=== PATIENT | female | born 1970 | race Caucasian/White ===

== ENCOUNTER 2017-10-21 22:18 | Emergency (ER) | payer SELFPAY ==
[2017-10-22] MEDS ORDERED: Sodium Chloride 0.9% 1000 ML 1,000 ML IV STA (00:21)
[2017-10-22] MEDS ORDERED: DUONEB 0.5-3 MG/3 ml Neb IH ONE ×2 (00:21→00:28)
[2017-10-22] MEDS ORDERED: Vistaril 50 MG/ML IM ONE (00:21)
[2017-10-22] MEDS ORDERED: SUBLIMAZE 100 MCG/2 ML IV ONE ×2 (00:22→02:48)
[2017-10-22] MEDS ORDERED: Sodium Chloride 0.9% 1000 ML 1,000 ML ONE (00:40)
[2017-10-22] MEDS ORDERED: VISTARIL 100MG/2ML IM ONE (00:40)
[2017-10-22] MEDS ORDERED: SUBLIMAZE 100 MCG/2 ML ONE ×2 (00:40→03:08)
[2017-10-22 00:45] LABS: Granulocyte Absolute (ANC) 4.66 (1.4-6.9); Hematocrit 41.5 % (35-47); Hemoglobin 13.7 gm/dl (12.0-16.0); Mean Cell Volume 90.6 fl (78-100); Mean Corpuscular Hemoglobin 29.9 pg (26-32); Mean Platelet Volume 9.5 fl (6-9.5); Platelet Count 287 K/mm3 (150-450); Red Blood Count 4.58 M/mm3 (4.1-5.4); Red Cell Distribution Width 15.3 % (11.5-14.0); White Blood Count 10.9 K/mm3 (4.0-10.5)
[2017-10-22 00:46] LABS: VBG BASE EXCESS 4.6 (-2.0-2.0); VBG HCO3- 29.2 meq/L (22-28); VBG O2 SATURATION 89.7 (95-100); VBG pH 7.45 (7.32-7.42)
[2017-10-22 00:47] LABS: VBG CARBOXYHEMOGLOBIN 9.7 % T HGB (0.0-6.9)
[2017-10-22 01:08] LABS: ALBUMIN 3.1 g/dL (3.4-5.0); ALKALINE PHOSPHATASE 75 U/L (46-116); ANION GAP 11.5 MEQ/L (5-15); BLOOD UREA NITROGEN 10 mg/dL (9-20); CHLORIDE 104 mEq/L (98-107); Calcium 8.5 mg/dL (8.5-10.1); Carbon Dioxide 27.6 mEq/L (21-32); EST GLOMERULAR FILTRATION RATE > 60 ML/MIN; Glucose 102 MG/DL (70-110); Potassium 3.9 mEq/L (3.5-5.1); SGOT/AST 21 U/L (15-37); SGPT/ALT 18 U/L (12-78); SODIUM 139 mEq/L (136-145); Total Protein 6.2 gm/dL (6.4-8.2)
[2017-10-22 01:22] LABS: Total Cells Counted 100
[2017-10-22 01:23] LABS: Eosinophil 3 % (0.00-3.0); Lymphocytes 50 % (24-44); Monocyte 5 % (0.0-12.0); Neutrophils 42 % (36.0-66.0); Platelet Estimate NORMAL (NORMAL)
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
[2017-10-22] MEDS ORDERED: DELTASONE 20 MG PO ONE (02:23)
[2017-10-22] MEDS ORDERED: Vibramycin 100 MG PO ONE (02:23)
[2017-10-22] MEDS ORDERED: DELTASONE 20 MG ONE (02:32)
[2017-10-22] MEDS ORDERED: Vibramycin 100 MG ONE (02:32)
[2017-10-22] MEDS ORDERED: PROVENTIL 2.5 MG/3 ML NEB IH ONE (02:54)
[2017-10-22] MEDS ORDERED: Xopenex 1.25 MG/0.5 ML UD NEBULE IH ONE ×2 (03:15→03:17)
[2017-10-22] MEDS ORDERED: Sodium Chloride 3 ML UD NEBULES IH ONE (03:17)
[2017-10-22 03:28] VITALS: O2SAT 98
[2017-10-22 03:55] VITALS: BP 102/50; PULSE 88
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
== END 2017-10-22 03:45 | disposition home or self-care (01) ==
LOC: ED 22:18
DX: T59.811A Toxic effect of smoke, accidental (unintentional), initial encounter (principal); J70.5 Respiratory conditions due to smoke inhalation; R07.89 Other chest pain; Z72.0 Tobacco use; R06.02 Shortness of breath; J45.909 Unspecified asthma, uncomplicated; J44.9 Chronic obstructive pulmonary disease, unspecified; Z86.73 Personal history of transient ischemic attack (TIA), and cerebral infarction without residual deficits; I25.2 Old myocardial infarction; N80.9 Endometriosis, unspecified
CPT/HCPCS: 36000; 36415; 71046; 80053; 82805; 84484; 85025; 93005; 93041; 94640; 96360; 96372; 96374; 96376; 99284; J3010; J3410; A9270-GY

== ENCOUNTER 2017-10-29 16:27 | Emergency (ER) | payer OTHER ==
[2017-10-29 16:49] VITALS: O2SAT 99
--- NOTE | 2017-10-29 17:15 | ERPHSYRPT ---
- History of Present Illness Time Seen by Provider: 10/29/17 17:09 Source: patient Exam Limitations: no limitations Patient Subjective Stated Complaint: pt co pain to left ankle, foot fell asleep today and when she went to stand her ankle twisted and she fell. co pain to top of foot and andkle Triage Nursing Assessment: pt alert, arrived per wc, resp. easy, skin w/d pink, no bruising to foot Physician History: The patient is a 47-year-old female complaining that she twisted her left foot last night when she got up after being in a chair. Her foot was asleep. It caused her to fall and twist her foot. Her foot is now swollen, bruised, and painful. She is not able to walk on it. She has never hurt that foot significantly in the past. Her past medical history is significant for asthma. Occurred: yesterday Reason for Fall: lost balance, fell from standing pos Injuries/Pain Location: lower extremity Loss of Consciousness: no loss of consciousness Quality: sharpness, throbbing Severity of Pain-Max: severe Severity of Pain-Current: severe Modifying Factors: Improves With: nothing Associated Symptoms (Fall): trouble walking Allergies/Adverse Reactions: diphenhydramine HCl [From Benadryl] Allergy (Intermediate, Verified 10/29/17 16: 50) Hives hydrocodone bitartrate [From Lortab] Allergy (Mild, Verified 10/29/17 16:50) Iodinated Contrast- Oral and IV Dye Allergy (Mild, Verified 10/29/17 16:50) Hives morphine Allergy (Mild, Verified 10/29/17 16:50) Poultry Allergy (Mild, Verified 10/29/17 16:50) Hives acetaminophen [From Darvocet-N 100] Allergy (Unknown, Verified 10/29/17 16:50) benzonatate [From Tessalon Perles] Allergy (Unknown, Verified 10/29/17 16:50) codeine [Codeine] Allergy (Unknown, Verified 10/29/17 16:50) ibuprofen Allergy (Unknown, Verified 10/29/17 16:50) promethazine HCl [From Phenergan] Allergy (Unknown, Verified 10/29/17 16:50) propoxyphene napsylate [From Darvocet-N 100] Allergy (Unknown, Verified 16:50) sumatriptan [From Imitrex] Allergy (Unknown, Verified 10/29/17 16:50) sumatriptan succinate [From Imitrex] Allergy (Unknown, Verified 10/29/17 16:50) influenza virus vaccine, specific [Influenza Virus Vacc,Specific] Allergy ( Verified 10/29/17 16:50) ketorolac tromethamine [From Toradol] Allergy (Verified 10/29/17 16:50) Hives milk Allergy (Verified 10/29/17 16:50) Penicillins Allergy (Verified 10/29/17 16:50) pneumococcal vaccine [Pneumococcal Vaccine] Allergy (Verified 10/29/17 16:50) Tetanus Vaccines and Toxoid [Tetanus Vaccines & Toxoid] Allergy (Verified 16:50) tramadol Allergy (Verified 10/29/17 16:50) EGGS Allergy (Mild, Uncoded 10/29/17 16:50) RASH Home Medications: Aspirin [Aspir-Low] 81 mg DAILY 10/29/17 [History] Hx Tetanus, Diphtheria Vaccination/Date Given: Yes Hx Influenza Vaccination/Date Given: No Hx Pneumococcal Vaccination/Date Given: No Immunizations Up to Date: Yes - Review of Systems Constitutional: No Fever, No Chills Eyes: No Symptoms Ears, Nose, & Throat: No Symptoms Respiratory: No Cough, No Dyspnea Cardiac: No Chest Pain, No Edema, No Syncope Abdominal/Gastrointestinal: No Abdominal Pain, No Nausea, No Vomiting, No Diarrhea Genitourinary Symptoms: No Dysuria Musculoskeletal: Fall, Injury Skin: No Rash Neurological: No Dizziness, No Focal Weakness, No Sensory Changes Psychological: No Symptoms Endocrine: No Symptoms Hematologic/Lymphatic: No Symptoms Immunological/Allergic: No Symptoms All Other Systems: Reviewed and Negative - Past Medical History Pertinent Past Medical History: Yes Neurological History: TIA ENT History: No Pertinent History Cardiac History: Angina, Arrhythmia, Myocardial Infarction ([place]) Respiratory History: Asthma, Bronchitis, Pneumonia, Other Endocrine Medical History: No Pertinent History Musculoskeletal History: Other GI Medical History: No Pertinent History History: No Pertinent History Psycho-Social History: No Pertinent History Female Reproductive Disorders: Endometriosis Other Medical History: disc in back,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 - Past Surgical History Past Surgical History: Yes Neuro Surgical History: Other Cardiac: Cardiac Catheterization Respiratory: No Pertinent History Gastrointestinal: Cholecystectomy Genitourinary: No Pertinent History Musculoskeletal: Orthopedic Surgery Female Surgical History: Section, Hysterectomy Other Surgical History: brain stem surgery, t & a, laser surgery on cyst on back of neck - Social History Smoking Status: Current every day smoker How long have you smoked: 22 years Exposure to second hand smoke: Yes Drug Use: none Patient Lives Alone: Yes Significant Family History: no pertinent family hx - Female History Hx Last Menstrual Period: hyster Hx Now: No - Nursing Vital Signs Nursing Vital Signs: Initial Vital Signs Temperature 98.3 F 10/29/17 16:39 Pulse Rate 92 H 10/29/17 16:39 Respiratory Rate 16 10/29/17 16:39 Blood Pressure 117/80 10/29/17 16:39 O2 Sat by Pulse Oximetry 99 10/29/17 16:39 Pain Scale Pain Intensity 7 - Hannah Coma Score Best Eye Response (Hannah): (4) open spontaneously Best Verbal Response (Hannah): (5) oriented Best Motor Response (Stedman): (6) obeys commands [place] Total: 15 - Physical Exam General Appearance: mild distress Head Injury: no evidence of injury Eye Exam: PERRL/EOMI ENT Exam: airway nml Neck Exam: normal inspection, No tenderness Respiratory/Chest Exam: normal breath sounds, No chest tenderness, No respiratory distress Cardiovascular Exam: normal heart sounds, regular rate/rhythm Gastrointestinal Exam: soft, No tenderness, No distention, No guarding, No ecchymosis Rectal Exam: not done Back Exam: normal inspection, No vertebral tenderness Extremity Exam: limited range of motion, pain with movement, swelling (left midfoot) Neurologic Exam: alert, 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, cooperative, sensation nml, No motor deficits Skin Exam: normal color, warm, dry SpO2 Interpretation: normal SpO2: 99 Oxygen Delivery: Room Air - Radiology Exams Left Foot X-ray Interpretation: Interpreted by me, Negative, No Fracture Ordered Tests: Active Orders 24 hr Category Date Time Status FOOT (MINIMUM 3 VIEWS) Stat Exams 10/29/17 17:17 Taken - Progress Progress: unchanged Counseled pt/family regarding: rad results - Departure Time of Disposition: 17:47 Departure Disposition: Home Clinical Impression: Foot sprain Condition: Stable Critical Care Time: No Referrals: BENITO DAS [Primary Care Provider] - Additional Instructions: You have a sprain of your left foot. Keep her foot elevated as much as possible , ice it every 4-6 hours for 10 minutes at a time. Use Naveen wrap as needed. Follow-up as needed.
[2017-10-29 18:02] VITALS: BP 100/81; PULSE 87
--- NOTE | 2017-10-30 08:33 | XRAY ---
Indication: Pain and bruising following injury. Comparison: None 3 nonweightbearing views of the left foot demonstrates small plantar heel spur and cuboid accessory ossicle. No other bony, articular, or soft tissue abnormalities.
== END 2017-10-29 18:20 | disposition home or self-care (01) ==
LOC: ED 16:27
DX: S93.602A Unspecified sprain of left foot, initial encounter (principal); X50.1XXA Overexertion from prolonged static or awkward postures, initial encounter
CPT/HCPCS: 73630; 99283

== ENCOUNTER 2020-11-17 13:25 | Emergency (ER) | payer OTHER ==
--- NOTE | 2020-11-17 13:32 | ERPHSYRPT ---
- History of Present Illness Time Seen by Provider: 11/17/20 13:32 Source: patient, EMS Exam Limitations: no limitations Physician History: This is a 50-year-old obese white female with a history of asthma, myocardial infarction, arrhythmia, TIAs and a history of seizures in the distant past who presents with onset of seizure today with postictal symptoms per EMS. She is brought in by EMS. Patient denies hitting her head or any head trauma. She complains of a headache and some neck pain. We placed a c-collar on her when she arrived into the emergency department. Patient takes no medications at all. She does smoke cigarettes. There is no history of loss of bowel or urinary control. Patient arrives teary-eyed and moves all extremities. Patient is not seizing upon arrival into the emergency department. She is awake alert and oriented. She appears anxious. Timing/Duration: today, resolved prior to arrival Severity: mild Character of Deficits: none Deficits: no difficulties Baseline/Normal Cognition: alert 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 Current Cognition: alert 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 Baseline Gait: walks w/o assistance Associated Symptoms: other (Tearful, pain in head and neck.), No nausea, No vomiting, No weakness, No numbness/tingling in legs/feet, No vision changes Allergies/Adverse Reactions: diphenhydramine HCl [From Benadryl] Allergy (Intermediate, Verified 10/29/17 16:50) Hives hydrocodone bitartrate [From Lortab] Allergy (Mild, Verified 10/29/17 16:50) Iodinated Contrast Media Allergy (Mild, Verified 10/29/17 16:50) Hives Poultry Allergy (Mild, Verified 10/29/17 16:50) Hives acetaminophen [From Darvocet-N 100] Allergy (Unknown, Verified 10/29/17 16:50) benzonatate [From Tessalon Perles] Allergy (Unknown, Verified 10/29/17 16:50) codeine [Codeine] Allergy (Unknown, Verified 10/29/17 16:50) ibuprofen Allergy (Unknown, Verified 10/29/17 16:50) promethazine HCl [From Phenergan] Allergy (Unknown, Verified 10/29/17 16:50) propoxyphene napsylate [From Darvocet-N 100] Allergy (Unknown, Verified 10/29/17 16:50) sumatriptan [From Imitrex] Allergy (Unknown, Verified 10/29/17 16:50) sumatriptan succinate [From Imitrex] Allergy (Unknown, Verified 10/29/17 16:50) influenza virus vaccine, specific [Influenza Virus Vacc,Specific] Allergy (Verified 10/29/17 16:50) ketorolac tromethamine [From Toradol] Allergy (Verified 10/29/17 16:50) Hives milk Allergy (Verified 10/29/17 16:50) Penicillins Allergy (Verified 10/29/17 16:50) pneumococcal vaccine [Pneumococcal Vaccine] Allergy (Verified 10/29/17 16:50) Tetanus Vaccines and Toxoid [Tetanus Vaccines & Toxoid] Allergy (Verified 10/29/17 16:50) tramadol Allergy (Verified 10/29/17 16:50) morphine Adverse Reaction (Mild, Verified 11/17/20 13:40) Itching EGGS Allergy (Mild, Uncoded 10/29/17 16:50) RASH Home Medications: Aspirin [Aspir-Low] 81 mg DAILY PRN PRN 10/29/17 [History] Hx Tetanus, Diphtheria Vaccination/Date Given: Yes Hx Influenza Vaccination/Date Given: No Hx Pneumococcal Vaccination/Date Given: No Travel Risk - International Travel Have you traveled outside of the country in past 3 weeks: No - Coronavirus Screening Are you exhibiting any of the following symptoms?: No Close contact with a COVID-19 positive Pt in past 14-21 Days: No - Review of Systems Constitutional: No Symptoms Eyes: No Symptoms Ears, Nose, & Throat: No Symptoms Respiratory: No Symptoms Cardiac: No Symptoms Abdominal/Gastrointestinal: No Symptoms Genitourinary Symptoms: No Symptoms Musculoskeletal: No Symptoms Skin: No Symptoms Neurological: Headache, Seizure Psychological: Anxiety Endocrine: No Symptoms Hematologic/Lymphatic: No Symptoms Immunological/Allergic: No Symptoms All Other Systems: Reviewed and Negative - Past Medical History Pertinent Past Medical History: Yes Neurological History: TIA ENT History: No Pertinent History Cardiac History: Angina, Arrhythmia, Myocardial Infarction ([place]) Respiratory History: Asthma, Bronchitis, Pneumonia, Other Endocrine Medical History: No Pertinent History Musculoskeletal History: Other GI Medical History: No Pertinent History History: No Pertinent History Psycho-Social History: No Pertinent History Female Reproductive Disorders: Endometriosis Other Medical History: disc in back,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 - Past Surgical History Past Surgical History: Yes Neuro Surgical History: Other Cardiac: Cardiac Catheterization Respiratory: No Pertinent History Gastrointestinal: Cholecystectomy Genitourinary: No Pertinent History Musculoskeletal: Orthopedic Surgery Female Surgical History: Section, Hysterectomy Other Surgical History: brain stem surgery, t & a, laser surgery on cyst on back of neck - Social History Smoking Status: Current every day smoker How long have you smoked: 22 years Exposure to second hand smoke: Yes Drug Use: none Patient Lives Alone: Yes Significant Family History: no pertinent family hx - Nursing Vital Signs Nursing Vital Signs: Initial Vital Signs O2 Sat by Pulse Oximetry 97 11/17/20 13:43 Pain Scale Pain Intensity 4 - Hannah Coma Scale Best Eye Response (Hannah): (4) open spontaneously Best Verbal Response (Hannah): (5) oriented Best Motor Response (Hannah): (6) obeys commands Hannah Total: 15 - Physical Exam General Appearance: mild distress, alert, anxiety Eye Exam: bilateral eye: normal inspection, PERRL, EOMI Ears, Nose, Throat Exam: normal ENT inspection, moist mucous membranes Neck Exam: normal inspection, non-tender, supple, full range of motion Respiratory: normal breath sounds, lungs clear, airway intact, No chest tenderness, No respiratory distress Cardiovascular: regular rate/rhythm, normal heart sounds, normal peripheral pulses Gastrointestinal: soft, normal bowel sounds, No tenderness Pelvic Exam: not done Rectal Exam: not done Extremity Exam: normal inspection, normal range of motion, pelvis stable Mental Status: alert, 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, 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 Exam: normal hearing, normal speech, PERRL Coordination/Gait: normal finger to nose Motor/Sensory: no motor deficit, no sensory deficit Skin Exam: normal color, warm, dry SpO2 Interpretation: normal O2 Delivery: Room Air - Course Nursing assessment & vital signs reviewed: Yes EKG Interpreted by Me: RATE (74), Sinus Rhythm, NORMAL AXIS, NORMAL INTERVALS, NORMAL QRS, NORMAL ST-T, Other Ordered Tests: Active Orders 24 hr Category Date Time Status Deliverer Food STAT Care 11/17/20 13:41 Active EKG-ER Only STAT Care 11/17/20 13:41 Active IV Insertion STAT Care 11/17/20 13:41 Active Pulse Oximetry (ED) STAT Care 11/17/20 13:41 Active Seizure Precautions -SCCHED STAT Care 11/17/20 13:41 Active CERVICAL SPINE WO CONTRAST [CT] Stat Exams 11/17/20 13:40 Completed HEAD WITHOUT CONTRAST [CT] Stat Exams 11/17/20 13:40 Completed CBC W DIFF Stat Lab 11/17/20 14:17 Completed CMP Stat Lab 11/17/20 14:17 Completed UA W/RFX UR CULTURE Stat Lab 11/17/20 15:00 Completed Urine Triage Profile Stat Lab 11/17/20 15:00 Received Medication Summary Generic Name Dose Route Start Last Admin Trade Name Miguel PRN Reason Stop Dose Admin Hydromorphone HCl 0.5 mg 11/17/20 15:58 Hydromorphone 1 Mg/Ml Injection IV 11/17/20 15:59 STAT ONE Discontinued Medications Generic Name Dose Route Start Last Admin Trade Name Miguel PRN Reason Stop Dose Admin Lorazepam 1 mg 11/17/20 13:41 11/17/20 13:47 Ativan 2 Mg/1 Ml Vial IV 11/17/20 13:42 1 mg STAT ONE Administration Lorazepam Confirm 11/17/20 13:45 Ativan 2 Mg/1 Ml Vial Administered 11/17/20 13:46 Dose 2 mg .ROUTE .STK-MED ONE Ondansetron HCl 4 mg 11/17/20 13:41 11/17/20 13:47 Zofran 4 Mg/2 Ml Vial IV 11/17/20 13:42 4 mg STAT ONE Administration Ondansetron HCl Confirm 11/17/20 13:44 Zofran 4 Mg/2 Ml Vial Administered 11/17/20 13:45 Dose 4 mg .ROUTE .STK-MED ONE Lab/Rad Data: Laboratory Result Diagrams 11/17/20 14:17 11/17/20 14:17 Laboratory Results 11/17/20 11/17/20 11/17/20 Range/Units 15:00 14:17 14:17 WBC 8.8 (4.0-10.5) K/mm3 RBC 5.21 (4.1-5.4) M/mm3 Hgb 15.5 (12.0-16.0) gm/dl Hct 47.7 H (35-47) % MCV 91.6 (78-100) fl MCH 29.8 (26-32) pg MCHC 32.5 (32-36) g/dl RDW 14.1 H (11.5-14.0) % Plt Count 313 (150-450) K/mm3 MPV 9.5 (7.5-11.0) fl Gran % 59.5 (36.0-66.0) % Eos # (Auto) 0.32 (0-0.5) Absolute Lymphs (auto) 2.52 (1.0-4.6) Absolute Monos (auto) 0.68 (0.0-1.3) Lymphocytes % 28.8 (24.0-44.0) % Monocytes % 7.8 (0.0-12.0) % Eosinophils % 3.7 (0.00-5.0) % Basophils % 0.2 (0.0-0.4) % Absolute Granulocytes 5.22 (1.4-6.9) Basophils # 0.02 (0-0.4) Sodium 138 (137-145) mmol/L Potassium 4.3 (3.5-5.1) mmol/L Chloride 105 (98-107) mmol/L Carbon Dioxide 27 (22-30) mmol/L Anion Gap 10.4 (5-15) MEQ/L BUN 18 H (7-17) mg/dL Creatinine 0.65 (0.52-1.04) mg/dL Estimated GFR > 60.0 ML/MIN Glucose 88 (74-106) mg/dL Calcium 9.7 (8.4-10.2) mg/dL Total Bilirubin 0.30 (0.2-1.3) mg/dL AST 29 (14-36) U/L ALT 19 (0-35) U/L Alkaline Phosphatase 87 (38-126) U/L Serum Total Protein 7.9 (6.3-8.2) g/dL Albumin 4.4 (3.5-5.0) g/dL Urine Color YELLOW (YELLOW) Urine Appearance SLIGHTLY CLOUDY (CLEAR) Urine pH 5.0 (5-6) Ur Specific [place] 1.020 (1.005-1.025) Urine Protein NEGATIVE (Negative) Urine Ketones NEGATIVE (NEGATIVE) Urine Blood SMALL (0-5) Jim/ul Urine Nitrite NEGATIVE (NEGATIVE) Urine Bilirubin NEGATIVE (NEGATIVE) Urine Urobilinogen NEGATIVE (0-1) mg/dL Ur Leukocyte Esterase NEGATIVE (NEGATIVE) Urine WBC (Auto) 0-2 (0-5) /HPF Urine RBC (Auto) 3-5 (0-2) /HPF U Epithel Cells (Auto) RARE (FEW) /HPF Urine Bacteria (Auto) FEW (NEGATIVE) /HPF Urine Mucus (Auto) SLIGHT (NEGATIVE) /HPF Urine Culture Reflexed NO (NO) Urine Glucose NEGATIVE (NEGATIVE) mg/dL - Progress Progress: improved, pain not gone completely, re-examined Progress Note: 11/17/20 15:59 CAT scan of the head shows no intracranial abnormalities CAT scan of the cervical spine shows no acute fracture or subluxation Medical decision making: Patient does complain of some lower back pain. She cannot take ibuprofen and cannot take Tylenol. She does use low-dose aspirin on occasion. In addition, she states that she can use Dilaudid without any problems. Patient states that is been 3 to 4 years since she has been on any antiseizure medication (Depakote). She states that she will contact her primary care doctor tomorrow morning to make arrangements for follow-up appointment and evaluation. Patient has not had any seizure activity since she has been in this emergency department. She does not want any medications at this time for seizure control. Counseled pt/family regarding: lab results, diagnosis, need for follow-up, rad results - Departure Departure Disposition: Home Clinical Impression: Recurrent seizures Condition: Stable Critical Care Time: No Referrals: BENITO DAS [Primary Care Provider] - Additional Instructions: Call your prescribing doctor tomorrow morning to make arrangements for antiseizure medication and follow-up appointment. Return to the emergency department if symptoms recur.
[2020-11-17] MEDS ORDERED: Zofran 4 MG/2 ML VIAL IV ONE (13:41)
[2020-11-17] MEDS ORDERED: Ativan 2 MG/1 ML VIAL IV ONE (13:41)
[2020-11-17] MEDS ORDERED: Zofran 4 MG/2 ML VIAL ONE (13:44)
[2020-11-17] MEDS ORDERED: Ativan 2 MG/1 ML VIAL ONE (13:45)
[2020-11-17 14:17] LABS: Absolute Neutrophil Ct (ANC) 5.22 (1.4-6.9); BASOPHIL % 0.2 % (0.0-0.4); Basophil (Absolute #) 0.02 (0-0.4); Eosinophil % 3.7 % (0.00-5.0); Eosinophil (Absolute #) 0.32 (0-0.5); Hematocrit 47.7 % (35-47); Hemoglobin 15.5 gm/dl (12.0-16.0); Lymphocyte (Absolute #) 2.52 (1.0-4.6); Lymphocytes % 28.8 % (24.0-44.0); Mean Cell Volume 91.6 fl (78-100); Mean Corpuscular Hemoglobin 29.8 pg (26-32); Mean Corpuscular Hgb Concent. 32.5 g/dl (32-36); Mean Platelet Volume 9.5 fl (7.5-11.0); Monocyte (Absolute #) 0.68 (0.0-1.3); Monocytes % 7.8 % (0.0-12.0); Neutrophil % 59.5 % (36.0-66.0); Platelet Count 313 K/mm3 (150-450); Red Blood Count 5.21 M/mm3 (4.1-5.4); Red Cell Distribution Width 14.1 % (11.5-14.0); White Blood Count 8.8 K/mm3 (4.0-10.5)
[2020-11-17 14:28] LABS: ALBUMIN 4.4 g/dL (3.5-5.0); ALKALINE PHOSPHATASE 87 U/L (38-126); ANION GAP 10.4 MEQ/L (5-15); BLOOD UREA NITROGEN 18 mg/dL (7-17); CHLORIDE 105 mmol/L (98-107); Calcium 9.7 mg/dL (8.4-10.2); Carbon Dioxide 27 mmol/L (22-30); Creatinine 1 0.65 mg/dL (0.52-1.04); EST GLOMERULAR FILTRATION RATE > 60.0 ML/MIN; Glucose 88 mg/dL (74-106); Potassium 4.3 mmol/L (3.5-5.1); SGOT/AST 29 U/L (14-36); SGPT/ALT 19 U/L (0-35); SODIUM 138 mmol/L (137-145); Total Protein 7.9 g/dL (6.3-8.2)
--- NOTE | 2020-11-17 14:31 | XRAY ---
Indication: Seizure. Posterior head injury. History of seizures. Multiple contiguous axial images obtained through the head without contrast. Comparison: September 05, 2013. Stable small right basal ganglia lacunar infarct. Otherwise normal appearing brain parenchyma, ventricles, and bony calvarium. Visualized paranasal sinuses and mastoid air cells are clear. Impression: Stable old right basal ganglia lacunar infarct. No new/acute intracranial abnormalities.
--- NOTE | 2020-11-17 14:32 | XRAY ---
Indication: Neck pain following seizure. Multiple contiguous images obtained through the cervical spine. Sagittal and coronal reformatted images obtained. Comparison: Cervical radiograph December 23, 2013. Axial images negative for acute fracture, suspicious bony lesions, or spinal canal stenosis. There is minimal/mild C3-C7 endplate spurring similar in appearance to the comparison cervical radiograph. Sagittal and coronal reformatted images again demonstrates lordotic straightening and minimal C4-C5 disc space narrowing. No acute compression fracture, subluxation, or jumped facet. Normal appearing craniocervical junction. Visualized noncontrasted soft tissues demonstrates mild bilateral carotid calcifications and biapical pulmonary emphysema. Impression: 1. Cervical lordotic straightening, positional versus paraspinal spasm. 2. Negative acute fracture/subluxation. 3. Incidental C3-C7 degenerative changes and pulmonary emphysema.
[2020-11-17 15:32] LABS: Appearance SLIGHTLY CLOUDY (CLEAR); Bacteria FEW /HPF (NEGATIVE); Bilirubin NEGATIVE (NEGATIVE); Blood SMALL Ery/ul (0-5); Epithelial Cells RARE /HPF (FEW); Glucose NEGATIVE (NEGATIVE); Ketones NEGATIVE (NEGATIVE); Leukocyte Esterase NEGATIVE (NEGATIVE); Mucus SLIGHT /HPF (NEGATIVE); Nitrite NEGATIVE (NEGATIVE); Protein,Urine Dip NEGATIVE (Negative); Urobilinogen NEGATIVE mg/dL (0-1); WBC 0-2 /HPF (0-5)
[2020-11-17 15:40] LABS: Barbiturate,Urine NEGATIVE (NEGATIVE); Benzodiazepine,Urine NEGATIVE (NEGATIVE); Cocaine,Urine NEGATIVE (NEGATIVE); Methadone,Urine NEGATIVE (NEGATIVE); Opiate,Urine NEGATIVE (NEGATIVE); PCP,Urine NEGATIVE (NEGATIVE); THC,Urine NEGATIVE (NEGATIVE)
[2020-11-17] MEDS ORDERED: Hydromorphone 1 mg/ml Injection IV ONE (15:58)
[2020-11-17] MEDS ORDERED: Hydromorphone 1 mg/ml Injection ONE (16:05)
[2020-11-17 16:21] LABS: Amphetamine,Urine POSITIVE (NEGATIVE)
[2020-11-17 16:26] VITALS: BP 121/85; PULSE 68; O2SAT 94
== END 2020-11-17 16:34 | disposition home or self-care (01) ==
LOC: ED 13:25
DX: G40.909 Epilepsy, unspecified, not intractable, without status epilepticus (principal); R51.9 Headache, unspecified; M54.2 Cervicalgia; F17.200 Nicotine dependence, unspecified, uncomplicated; J45.909 Unspecified asthma, uncomplicated; I25.2 Old myocardial infarction; I49.9 Cardiac arrhythmia, unspecified
CPT/HCPCS: 36000; 36415; 70450; 72125; 80053; 80307; 81001; 85025; 93005; 93041; 94760; 96374; 96375; 99284; J1170; J2060; J2405

== ENCOUNTER 2021-04-22 21:10 | Emergency (ER) | payer OTHER ==
[2021-04-22 21:58] LABS: Hematocrit 45.8 % (35-47); Hemoglobin 14.8 gm/dl (12.0-16.0); Mean Cell Volume 91.2 fl (78-100); Mean Corpuscular Hemoglobin 29.5 pg (26-32); Mean Corpuscular Hgb Concent. 32.3 g/dl (32-36); Mean Platelet Volume 9.5 fl (7.5-11.0); Platelet Count 364 K/mm3 (150-450); Red Blood Count 5.02 M/mm3 (4.1-5.4); Red Cell Distribution Width 15.3 % (11.5-14.0); White Blood Count 15.3 K/mm3 (4.0-10.5)
[2021-04-22 22:05] LABS: ALBUMIN 4.3 g/dL (3.5-5.0); ALKALINE PHOSPHATASE 75 U/L (38-126); ANION GAP 14.8 MEQ/L (5-15); BLOOD UREA NITROGEN 17 mg/dL (7-17); CHLORIDE 101 mmol/L (98-107); Calcium 9.5 mg/dL (8.4-10.2); Carbon Dioxide 26 mmol/L (22-30); Creatinine 1 0.86 mg/dL (0.52-1.04); EST GLOMERULAR FILTRATION RATE > 60.0 ML/MIN; Glucose 119 mg/dL (74-106); Potassium 3.9 mmol/L (3.5-5.1); SGOT/AST 22 U/L (14-36); SGPT/ALT 15 U/L (0-35); SODIUM 138 mmol/L (137-145); Total Protein 7.2 g/dL (6.3-8.2)
[2021-04-22 22:07] LABS: INR 0.95 (0.8-3.0); PROTIME 11.2 SECONDS (9.4-12.5)
[2021-04-22 22:10] LABS: PTT 32.4 SECONDS (25.1-36.5)
--- NOTE | 2021-04-22 22:35 | XRAY ---
Indication: Chest pain. COPD. Comparison: October 22, 2017. Portable chest remains hyperinflated and clear. Heart and mediastinal structures within normal limits. Bony thorax intact. No new/acute findings. Impression: Continued nonacute hyperinflated chest.
[2021-04-22 22:40] LABS: BAND 3 % (0.0-2.0); Basophil 1 % (0.0-1.0); Lymphocytes 40 % (24-44); Monocyte 7 % (0.0-12.0); Neutrophils 49 % (36.0-66.0); Platelet Estimate NORMAL (NORMAL); Total Cells Counted 100
--- NOTE | 2021-04-22 23:08 | ERPHSYRPT ---
- History of Present Illness Historian: patient Exam Limitations: no limitations Patient Subjective Stated Complaint: pt states "I have been short of breath all day." Triage Nursing Assessment: pt ambulated into the er; pt is axo x4; c/o SOB; pt denies chest pain but states chest heaviness; pt states that she woke up this morning unable to catch her breath; pt states she called her signwriter and they stated to get to the er; pt states that she had heart cath done 3 weeks ago on saturday; pt states that she took 4 baby aspirin prior to coming in; pt is not in visible respiratory distress; lung sounds clear in all lobes; clear apical heart tone; strong radial pulses; pedal pulses present; vital wnl Physician History: 50 yo wf w palpatations today beginning at 8:30AM. Pt states that she has been having chest pressure which radiates from her L scapula to her xyphoid area. She states that she has had N/V/diaphoresis/dyspnea w the pain. Pt smokes <1ppd, has HTN, and states that she had a SD several years ago. She also states that she h ad a cardiac cath 3 wks ago as an outpt. Timing/Duration: today Activities at Onset: rest Quality: pressure Location: substernal, back Chest Pain Radiation: back (Pain radiates from her L scapula to her mid-inferior chest area) Severity of Pain-Max: severe Severity of Pain-Current: severe Modifying Factors: Improves With: movement Associated Symptoms: denies symptoms, nausea, vomiting, palpitations, shortness of breath, diaphoresis Prior Chest Pain/Cardiac Workup: cardiac cath, heart attack Nitro Today/Relief: no nitro taken today Aspirin Treatment Today: no aspirin today Allergies/Adverse Reactions: diphenhydramine HCl [From Benadryl] Allergy (Intermediate, Verified 04/22/21 21:12) Hives hydrocodone bitartrate [From Lortab] Allergy (Mild, Verified 04/22/21 21:12) Iodinated Contrast Media Allergy (Mild, Verified 04/22/21 21:12) Hives Poultry Allergy (Mild, Verified 04/22/21 21:12) Hives acetaminophen [From Darvocet-N 100] Allergy (Unknown, Verified 04/22/21 21:12) benzonatate [From Tessalon Perles] Allergy (Unknown, Verified 04/22/21 21:12) codeine [Codeine] Allergy (Unknown, Verified 04/22/21 21:12) ibuprofen Allergy (Unknown, Verified 04/22/21 21:12) promethazine HCl [From Phenergan] Allergy (Unknown, Verified 04/22/21 21:12) propoxyphene napsylate [From Darvocet-N 100] Allergy (Unknown, Verified 04/22/21 21:12) sumatriptan [From Imitrex] Allergy (Unknown, Verified 04/22/21 21:12) sumatriptan succinate [From Imitrex] Allergy (Unknown, Verified 04/22/21 21:12) influenza virus vaccine, specific [Influenza Virus Vacc,Specific] Allergy (Verified 04/22/21 21:12) ketorolac tromethamine [From Toradol] Allergy (Verified 04/22/21 21:12) Hives milk Allergy (Verified 04/22/21 21:12) Penicillins Allergy (Verified 04/22/21 21:12) pneumococcal vaccine [Pneumococcal Vaccine] Allergy (Verified 04/22/21 21:12) Tetanus Vaccines and Toxoid [Tetanus Vaccines & Toxoid] Allergy (Verified 04/22/21 21:12) tramadol Allergy (Verified 04/22/21 21:12) EGGS Allergy (Mild, Uncoded 04/22/21 21:12) RASH Home Medications: Aspirin [Aspir-Low] 81 mg PO DAILY 10/29/17 [History] Albuterol 8 gm Mdi Hfa [Ventolin Hfa MDI] 2 inhaler IN Q6H PRN PRN 04/22/21 [History] Escitalopram Oxalate 10 mg [Lexapro 10 MG] 10 mg PO DAILY 04/22/21 [History] Fluticasone Propion/Salmeterol [Wixela 250-50 Inhub] 1 inhaler IH DAILY 04/22/21 [History] Furosemide 20 mg [Lasix 20 mg] 20 mg PO DAILY PRN 04/22/21 [History] Isosorbide Mononitrate 30 mg [Imdur 30 MG] 30 mg PO DAILY 04/22/21 [History] Metoprolol Succinate [Toprol Xl] 25 mg PO DAILY 04/22/21 [History] lisinopriL [Lisinopril] 2.5 mg PO DAILY 04/22/21 [History] Hx Tetanus, Diphtheria Vaccination/Date Given: No Hx Influenza Vaccination/Date Given: No Hx Pneumococcal Vaccination/Date Given: No Travel Risk - International Travel Have you traveled outside of the country in past 3 weeks: No - Coronavirus Screening Are you exhibiting any of the following symptoms?: No Close contact with a COVID-19 positive Pt in past 14-21 Days: No - Vaccine Status Have you recieved a Covid-19 vaccination: No - Review of Systems Constitutional: No Symptoms Eyes: No Symptoms Ears, Nose, & Throat: No Symptoms Respiratory: No Symptoms, Dyspnea Cardiac: No Symptoms, Chest Pain Abdominal/Gastrointestinal: No Symptoms, Nausea, Vomiting Genitourinary Symptoms: No Symptoms Musculoskeletal: No Symptoms Skin: No Symptoms Neurological: No Symptoms Psychological: No Symptoms Endocrine: No Symptoms Hematologic/Lymphatic: No Symptoms Immunological/Allergic: No Symptoms - Past Medical History Pertinent Past Medical History: Yes Neurological History: Seizures, TIA ENT History: No Pertinent History Cardiac History: Angina, Arrhythmia, Myocardial Infarction (SD) Respiratory History: Asthma, Bronchitis, COPD, Pneumonia, Other Endocrine Medical History: No Pertinent History Musculoskeletal History: Other GI Medical History: No Pertinent History History: No Pertinent History Psycho-Social History: Depression Female Reproductive Disorders: Endometriosis Other Medical History: disc in back,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 - Past Surgical History Past Surgical History: Yes Neuro Surgical History: Neurological Surgery, Other Cardiac: Cardiac Catheterization Respiratory: No Pertinent History Gastrointestinal: Cholecystectomy Genitourinary: No Pertinent History Musculoskeletal: Orthopedic Surgery Female Surgical History: Section, Hysterectomy Other Surgical History: brain stem surgery, t & a, laser surgery on cyst on back of neck - Social History Smoking Status: Current every day smoker How long have you smoked: 22 years Exposure to second hand smoke: Yes Drug Use: none Patient Lives Alone: Yes Significant Family History: no pertinent family hx - Female History Hx Now: No - Nursing Vital Signs Nursing Vital Signs: Initial Vital Signs Pulse Rate 82 04/22/21 21:12 Respiratory Rate 25 H 04/22/21 21:12 Blood Pressure 110/87 04/22/21 21:12 O2 Sat by Pulse Oximetry 96 04/22/21 21:12 Pain Scale Pain Intensity 2 - Physical Exam General Appearance: no apparent distress, anxiety Eye Exam: PERRL/EOMI Ears, Nose, Throat Exam: normal ENT inspection, TMs normal, pharynx normal, moist mucous membranes Neck Exam: normal inspection, non-tender, supple, full range of motion, No meningismus, No mass, No Brudzinski, No Kernig's, No carotid bruit Respiratory Exam: normal breath sounds, lungs clear, airway intact, No respiratory distress Cardiovascular Exam: regular rate/rhythm, normal heart sounds, normal peripheral pulses, No murmur Gastrointestinal/Abdomen Exam: soft, normal bowel sounds, No tenderness Back Exam: normal inspection, normal range of motion, No CVA tenderness Extremity Exam: normal inspection, normal range of motion Neurologic Exam: alert, 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, cooperative, 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 tested, normal mood/affect, nml cerebellar function, nml station & gait, sensation nml, No motor deficits, No sensory deficit Skin Exam: normal color, warm, dry, No rash Lymphatic Exam: No adenopathy SpO2 Interpretation: normal SpO2: 97 O2 Delivery: Room Air - Course Nursing assessment & vital signs reviewed: Yes EKG Interpreted by Me: RATE (NSR/R81/Mildly prolonged QTc/Low voltage/No acute ST changes) - Radiology Exams Chest X-ray Interpretation: Interpreted by me (NAD per ER read) - CT Exams Chest CT Interpretation: Tele-radiologist Report (No PE,AD,TAA/Celiac artery stenosis/COPD) Ordered Tests: Active Orders 24 hr Category Date Time Status Credit Collection Associate STAT Care 04/22/21 22:05 Completed EKG-ER Only STAT Care 04/22/21 22:04 Completed IV Insertion STAT Care 04/22/21 22:04 Completed CHEST 1 VIEW (PORTABLE) Stat Exams 04/22/21 21:53 Completed CHEST WITH CONTRAST [CT] Stat Exams 04/23/21 00:30 Taken CBC W DIFF Stat Lab 04/22/21 21:55 Completed CMP Stat Lab 04/22/21 21:55 Completed D-DIMER QUANTITATIVE Stat Lab 04/22/21 23:15 Completed Manual Differential NC Stat Lab 04/22/21 21:55 Completed PROTIME WITH INR Stat Lab 04/22/21 21:55 Completed PTT Stat Lab 04/22/21 21:55 Completed TROPONIN Q3H Lab 04/22/21 21:55 Completed TROPONIN Q3H Lab 04/23/21 01:08 Completed TROPONIN Q3H Lab 04/23/21 04:00 Ordered TROPONIN Q3H Lab 04/23/21 07:00 Ordered TROPONIN Q3H Lab 04/23/21 10:00 Ordered Medication Summary Discontinued Medications Generic Name Dose Route Start Last Admin Trade Name Agustínq PRN Reason Stop Dose Admin Aspirin 324 mg 04/23/21 02:15 04/23/21 02:19 Baby Aspirin 81 Mg Chew PO 04/23/21 02:16 324 mg STAT ONE Administration Diphenhydramine HCl 25 mg 04/22/21 23:57 04/23/21 00:00 Benadryl 50 Mg/Ml IV 04/22/21 23:58 25 mg STAT ONE Administration Diphenhydramine HCl Confirm 04/22/21 23:58 Benadryl 50 Mg/Ml Administered 04/22/21 23:59 Dose 50 mg .ROUTE .STK-MED ONE Methylprednisolone Sodium Succinate 125 mg 04/22/21 23:58 04/23/21 00:00 Solu-Medrol 125 Mg IV 04/22/21 23:59 125 mg STAT ONE Administration Methylprednisolone Sodium Succinate Confirm 04/22/21 23:58 Solu-Medrol 125 Mg Administered 04/22/21 23:59 Dose 125 mg .ROUTE .STK-MED ONE Lab/Rad Data: Laboratory Result Diagrams 04/22/21 21:55 04/22/21 21:55 Laboratory Results 04/23/21 04/22/21 04/22/21 Range/Units 01:08 23:15 21:55 WBC (4.0-10.5) K/mm3 RBC (4.1-5.4) M/mm3 Hgb (12.0-16.0) gm/dl Hct (35-47) % MCV (78-100) fl MCH (26-32) pg MCHC (32-36) g/dl RDW (11.5-14.0) % Plt Count (150-450) K/mm3 MPV (7.5-11.0) fl Segmented Neutrophils (36.0-66.0) % Band Neutrophils (0.0-2.0) % Lymphocytes (Manual) (24-44) % Monocytes (Manual) (0.0-12.0) % Basophils (Manual) (0.0-1.0) % Platelet Estimate (NORMAL) RBC Morphology PT (9.4-12.5) SECONDS INR (0.8-3.0) APTT (25.1-36.5) SECONDS D-Dimer 582 H* (215-500) ng/mL Sodium (137-145) mmol/L Potassium (3.5-5.1) mmol/L Chloride (98-107) mmol/L Carbon Dioxide (22-30) mmol/L Anion Gap (5-15) MEQ/L BUN (7-17) mg/dL Creatinine (0.52-1.04) mg/dL Estimated GFR ML/MIN Glucose (74-106) mg/dL Calcium (8.4-10.2) mg/dL Total Bilirubin (0.2-1.3) mg/dL AST (14-36) U/L ALT (0-35) U/L Alkaline Phosphatase (38-126) U/L Troponin I < 0.012 < 0.012 (0.000-0.034) ng/mL Serum Total Protein (6.3-8.2) g/dL Albumin (3.5-5.0) g/dL 04/22/21 04/22/21 04/22/21 Range/Units 21:55 21:55 21:55 WBC 15.3 H (4.0-10.5) K/mm3 RBC 5.02 (4.1-5.4) M/mm3 Hgb 14.8 (12.0-16.0) gm/dl Hct 45.8 (35-47) % MCV 91.2 (78-100) fl MCH 29.5 (26-32) pg MCHC 32.3 (32-36) g/dl RDW 15.3 H (11.5-14.0) % Plt Count 364 (150-450) K/mm3 MPV 9.5 (7.5-11.0) fl Segmented Neutrophils 49 (36.0-66.0) % Band Neutrophils 3 H (0.0-2.0) % Lymphocytes (Manual) 40 (24-44) % Monocytes (Manual) 7 (0.0-12.0) % Basophils (Manual) 1 (0.0-1.0) % Platelet Estimate NORMAL (NORMAL) RBC Morphology NORMAL PT 11.2 (9.4-12.5) SECONDS INR 0.95 (0.8-3.0) APTT 32.4 (25.1-36.5) SECONDS D-Dimer (215-500) ng/mL Sodium 138 (137-145) mmol/L Potassium 3.9 (3.5-5.1) mmol/L Chloride 101 (98-107) mmol/L Carbon Dioxide 26 (22-30) mmol/L Anion Gap 14.8 (5-15) MEQ/L BUN 17 (7-17) mg/dL Creatinine 0.86 (0.52-1.04) mg/dL Estimated GFR > 60.0 ML/MIN Glucose 119 H (74-106) mg/dL Calcium 9.5 (8.4-10.2) mg/dL Total Bilirubin 0.30 (0.2-1.3) mg/dL AST 22 (14-36) U/L ALT 15 (0-35) U/L Alkaline Phosphatase 75 (38-126) U/L Troponin I (0.000-0.034) ng/mL Serum Total Protein 7.2 (6.3-8.2) g/dL Albumin 4.3 (3.5-5.0) g/dL - Progress Progress Note: 04/23/21 02:16 ASA 324mg po 04/23/21 02:54 Trop neg x2 Counseled pt/family regarding: lab results, diagnosis, need for follow-up, rad results, smoking cessation - Departure Departure Disposition: Home Clinical Impression: Chest pain, Celiac artery stenosis Condition: Stable Critical Care Time: No Referrals: BENITO DAS [Primary Care Provider] - Instructions: Shortness of Breath (Dyspnea) (DC), Chest Pain (DC) Additional Instructions: Follow up with your signwriter on Saturday Also follow up with a general surgeon or vascular surgeon about the celiac artery stenosis Stop smoking Return to ER for increasing pain /shortness of breath
[2021-04-22] MEDS ORDERED: BENADRYL 50 MG/ML IV ONE (23:57)
[2021-04-22] MEDS ORDERED: solu-MEDROL 125 MG ONE (23:58)
[2021-04-22] MEDS ORDERED: solu-MEDROL 125 MG IV ONE (23:58)
[2021-04-22] MEDS ORDERED: BENADRYL 50 MG/ML ONE (23:58)
[2021-04-23] MEDS ORDERED: BABY ASPIRIN 81 MG CHEW PO ONE (02:15)
[2021-04-23 02:29] VITALS: BP 119/82; PULSE 71
[2021-04-23 02:55] VITALS: O2SAT 97
--- NOTE | 2021-04-23 07:38 | XRAY ---
Indication: Chest pain, chest heaviness, nausea, vomiting, and elevated d-dimer. Multiple contiguous axial images obtained through the chest using 100 cc Isovue-370 contrast and PE protocol. Comparison: March 09, 2013. There is adequate opacification of the pulmonary arteries to include the lobar and segmental branches. Minimal respiration artifact limits evaluation of the more distal lobar and segmental branches. No obvious central pulmonary embolus. Heart not enlarged with tiny pericardial effusion/thickening anteriorly. Aorta is normal in course and caliber. No pathologic mediastinal/hilar lymphadenopathy. Lungs demonstrate minimal bilateral dependent atelectasis and bilateral pulmonary emphysema with biapical subpleural cystic changes. No suspicious pulmonary mass, infiltrate, or effusion. Bony thorax intact with minimal degenerative changes throughout the spine. Limited upper abdomen demonstrates mild fatty liver and cholecystectomy. Impression: 1. Minimal respiration artifact. 2. No obvious pulmonary embolus or acute cardiopulmonary abnormalities. 3. Pulmonary emphysema, tiny pericardial effusion/thickening, and fatty liver. Comment: Preliminary interpretation was made by [facility]. No critical discrepancy.
== END 2021-04-23 02:33 | disposition home or self-care (01) ==
LOC: ED 21:10
DX: R07.9 Chest pain, unspecified (principal); R00.2 Palpitations; I77.4 Celiac artery compression syndrome; R11.2 Nausea with vomiting, unspecified; I10 Essential (primary) hypertension; I25.2 Old myocardial infarction; Z79.899 Other long term (current) drug therapy; Z86.73 Personal history of transient ischemic attack (TIA), and cerebral infarction without residual deficits
CPT/HCPCS: 36000; 36415; 71045; 71260; 80053; 84484; 85025; 85379; 85610; 85730; 93005; 93041; 96374; 96375; 99284; J1200; J2930; A9270-GY

== ENCOUNTER 2021-06-02 19:18 | Emergency (ER) | payer OTHER ==
--- NOTE | 2021-06-02 20:35 | ERPHSYRPT ---
- History of Present Illness Time Seen by Provider: 06/02/21 20:32 Source: patient Exam Limitations: no limitations Patient Subjective Stated Complaint: C/O pain to right side of chest under right breast. States pain is constant and is a #5 when at rest but increases to a 9 or 10 when coughing or taking a deep breath. Pain began around May 27, 2021 which was 3 days after her bronchoscope. Triage Nursing Assessment: No SOB noted. Occassional, weak, non-productive cough noted. Patient has visual discomfort when coughing (moves around in bed and grimaces). Right lower post lung diminished. Physician History: This is a morbidly obese 50-year-old white female who underwent a bronchoscopy on 05/24/2021. 3 days later she began having cough and pain with the cough that was deep on the right side of her chest. Patient is here today because the pain is not getting better. She was given a prescription for morphine that she could take up to 3 times a day but only has been taking at night. This medication does not particularly help her pain. Patient is not short of breath. She is had no fever. Patient states she is not allergic to iodinated contrast dye. We will need to clarify this. Severity: moderate Modifying Factors: Improves With: nothing Associated Symptoms: cough Allergies/Adverse Reactions: diphenhydramine HCl [From Benadryl] Allergy (Intermediate, Verified 06/02/21 20:17) Hives hydrocodone bitartrate [From Lortab] Allergy (Mild, Verified 06/02/21 20:17) Iodinated Contrast Media Allergy (Mild, Verified 06/02/21 20:17) Hives Poultry Allergy (Mild, Verified 06/02/21 20:17) Hives acetaminophen [From Darvocet-N 100] Allergy (Unknown, Verified 06/02/21 20:17) benzonatate [From Tessalon Perles] Allergy (Unknown, Verified 06/02/21 20:17) codeine [Codeine] Allergy (Unknown, Verified 06/02/21 20:17) ibuprofen Allergy (Unknown, Verified 06/02/21 20:17) promethazine HCl [From Phenergan] Allergy (Unknown, Verified 06/02/21 20:17) propoxyphene napsylate [From Darvocet-N 100] Allergy (Unknown, Verified 06/02/21 20:17) sumatriptan [From Imitrex] Allergy (Unknown, Verified 06/02/21 20:17) sumatriptan succinate [From Imitrex] Allergy (Unknown, Verified 06/02/21 20:17) fluticasone [From Wixela Inhub] Allergy (Verified 06/02/21 20:18) influenza virus vaccine, specific [Influenza Virus Vacc,Specific] Allergy (Verified 06/02/21 20:17) ketorolac tromethamine [From Toradol] Allergy (Verified 06/02/21 20:17) Hives milk Allergy (Verified 06/02/21 20:17) Penicillins Allergy (Verified 06/02/21 20:17) pneumococcal vaccine [Pneumococcal Vaccine] Allergy (Verified 06/02/21 20:17) salmeterol [From Wixela Inhub] Allergy (Verified 06/02/21 20:18) Tetanus Vaccines and Toxoid [Tetanus Vaccines & Toxoid] Allergy (Verified 06/02/21 20:17) tramadol Allergy (Verified 06/02/21 20:17) EGGS Allergy (Mild, Uncoded 06/02/21 20:17) RASH Home Medications: Aspirin [Aspir-Low] 81 mg PO DAILY 10/29/17 [History] Albuterol 8 gm Mdi Hfa [Ventolin Hfa MDI] 2 inhaler IN Q6H PRN PRN 04/22/21 [History] Escitalopram Oxalate 10 mg [Lexapro 10 MG] 10 mg PO DAILY 04/22/21 [History] Fluticasone Propion/Salmeterol [Wixela 250-50 Inhub] 1 inhaler IH DAILY 04/22/21 [History] Furosemide 20 mg [Lasix 20 mg] 20 mg PO DAILY PRN 04/22/21 [History] Isosorbide Mononitrate 30 mg [Imdur 30 MG] 30 mg PO DAILY 04/22/21 [History] Metoprolol Succinate [Toprol Xl] 25 mg PO DAILY 04/22/21 [History] lisinopriL [Lisinopril] 2.5 mg PO DAILY 04/22/21 [History] Hx Tetanus, Diphtheria Vaccination/Date Given: Yes Hx Influenza Vaccination/Date Given: No (Allergy) Hx Pneumococcal Vaccination/Date Given: No (Allergy) Immunizations Up to Date: Yes Travel Risk - International Travel Have you traveled outside of the country in past 3 weeks: No - Coronavirus Screening Are you exhibiting any of the following symptoms?: No Close contact with a COVID-19 positive Pt in past 14-21 Days: No - Vaccine Status Have you recieved a Covid-19 vaccination: Yes [employer]: [facility] - Vaccination Dates Date of 2cond Vaccination (if applicable): 06/01/2021 - Review of Systems Constitutional: No Symptoms Eyes: No Symptoms Ears, Nose, & Throat: No Symptoms Respiratory: Cough (Only with cough and on the right chest) Cardiac: Chest Pain (Right deep chest) Abdominal/Gastrointestinal: No Symptoms Genitourinary Symptoms: No Symptoms Musculoskeletal: No Symptoms Skin: No Symptoms Endocrine: No Symptoms Hematologic/Lymphatic: No Symptoms Immunological/Allergic: No Symptoms All Other Systems: Reviewed and Negative - Past Medical History Pertinent Past Medical History: Yes Neurological History: Seizures, TIA ENT History: No Pertinent History Cardiac History: Angina, Arrhythmia, Myocardial Infarction (CT) Respiratory History: Asthma, Bronchitis, COPD, Pneumonia, Other Endocrine Medical History: No Pertinent History Musculoskeletal History: Other GI Medical History: No Pertinent History History: No Pertinent History Psycho-Social History: Depression Female Reproductive Disorders: Endometriosis Other Medical History: disc in back,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 - Past Surgical History Past Surgical History: Yes Neuro Surgical History: Neurological Surgery, Other Cardiac: Cardiac Catheterization Respiratory: No Pertinent History Gastrointestinal: Cholecystectomy Genitourinary: No Pertinent History Musculoskeletal: Orthopedic Surgery Female Surgical History: Section, Hysterectomy Other Surgical History: brain stem surgery, t & a, laser surgery on cyst on back of neck - Social History Smoking Status: Current every day smoker How long have you smoked: 22 years Exposure to second hand smoke: Yes Drug Use: none Patient Lives Alone: Yes Significant Family History: no pertinent family hx - Female History Hx Now: No - Nursing Vital Signs Nursing Vital Signs: Initial Vital Signs Temperature 98 F 06/02/21 20:08 Pulse Rate 68 06/02/21 20:08 Respiratory Rate 22 06/02/21 20:08 Blood Pressure 134/55 06/02/21 20:08 O2 Sat by Pulse Oximetry 97 06/02/21 20:08 Pain Scale Pain Intensity 5 - Physical Exam General Appearance: no apparent distress, alert, anxiety, obese Eye Exam: PERRL/EOMI, eyes nml inspection Ears, Nose, Throat Exam: normal ENT inspection, moist mucous membranes Neck Exam: normal inspection, non-tender, supple, full range of motion Respiratory Exam: normal breath sounds, chest tenderness (Right), lungs clear, airway intact, No respiratory distress Cardiovascular Exam: regular rate/rhythm, normal heart sounds, normal peripheral pulses Gastrointestinal/Abdomen Exam: soft, normal bowel sounds, No tenderness Pelvic Exam: not done Rectal Exam: not done Back Exam: normal inspection, normal range of motion, No CVA tenderness, No vertebral tenderness Extremity Exam: normal inspection, normal range of motion, pelvis stable Neurologic Exam: alert, 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, cooperative, neonatal social worker II-XII nml as tested, normal mood/affect, nml cerebellar function, nml station & gait, sensation nml Skin Exam: normal color, warm, dry Lymphatic Exam: No adenopathy SpO2 Interpretation: normal SpO2: 97 O2 Delivery: Room Air - Course Nursing assessment & vital signs reviewed: Yes Ordered Tests: Active Orders 24 hr Category Date Time Status EKG-ER Only STAT Care 06/02/21 21:40 Active IV Insertion STAT Care 06/02/21 21:40 Active CHEST WITH CONTRAST [CT] Stat Exams 06/03/21 00:15 Taken CBC W DIFF Stat Lab 06/02/21 20:40 Completed CMP Stat Lab 06/02/21 20:40 Completed LIPASE Stat Lab 06/02/21 20:40 Completed Lactic Acid Stat Lab 06/02/21 21:55 Completed TROPONIN Q3H Lab 06/02/21 20:40 Completed TROPONIN Q3H Lab 06/03/21 01:15 Received TROPONIN Q3H Lab 06/03/21 03:45 Ordered TROPONIN Q3H Lab 06/03/21 06:45 Ordered TROPONIN Q3H Lab 06/03/21 09:45 Ordered Medication Summary Discontinued Medications Generic Name Dose Route Start Last Admin Trade Name Miguel PRN Reason Stop Dose Admin Morphine Sulfate 4 mg 06/03/21 00:44 06/03/21 01:34 Morphine Sulfate 4 Mg Inj IV 06/03/21 00:45 4 mg STAT ONE Administration Morphine Sulfate Confirm 06/03/21 01:24 Morphine Sulfate 4 Mg Inj Administered 06/03/21 01:25 Dose 4 mg .ROUTE .STK-MED ONE Ondansetron HCl 4 mg 06/02/21 21:40 06/02/21 21:57 Zofran 4 Mg/2 Ml Vial IV 06/02/21 21:41 4 mg STAT ONE Administration Ondansetron HCl Confirm 06/02/21 21:52 Zofran 4 Mg/2 Ml Vial Administered 06/02/21 21:53 Dose 4 mg .ROUTE .K-MED ONE Lab/Rad Data: Laboratory Result Diagrams 06/02/21 20:40 06/02/21 20:40 Laboratory Results 06/02/21 06/02/21 06/02/21 Range/Units 21:55 20:40 20:40 WBC (4.0-10.5) K/mm3 RBC (4.1-5.4) M/mm3 Hgb (12.0-16.0) gm/dl Hct (35-47) % MCV (78-100) fl MCH (26-32) pg MCHC (32-36) g/dl RDW (11.5-14.0) % Plt Count (150-450) K/mm3 MPV (7.5-11.0) fl Gran % (36.0-66.0) % Eos # (Auto) (0-0.5) Absolute Lymphs (auto) (1.0-4.6) Absolute Monos (auto) (0.0-1.3) Lymphocytes % (24.0-44.0) % Monocytes % (0.0-12.0) % Eosinophils % (0.00-5.0) % Basophils % (0.0-0.4) % Absolute Granulocytes (1.4-6.9) Basophils # (0-0.4) Sodium 136 L (137-145) mmol/L Potassium 4.0 (3.5-5.1) mmol/L Chloride 100 (98-107) mmol/L Carbon Dioxide 31 H (22-30) mmol/L Anion Gap 9.7 (5-15) MEQ/L BUN 15 (7-17) mg/dL Creatinine 0.83 (0.52-1.04) mg/dL Estimated GFR > 60.0 ML/MIN Glucose 104 (74-106) mg/dL Lactic Acid 1.0 (0.4-2.0) Calcium 9.6 (8.4-10.2) mg/dL Total Bilirubin 0.40 (0.2-1.3) mg/dL AST 28 (14-36) U/L ALT 14 (0-35) U/L Alkaline Phosphatase 85 (38-126) U/L Troponin I < 0.012 (0.000-0.034) ng/mL Serum Total Protein 7.3 (6.3-8.2) g/dL Albumin 4.2 (3.5-5.0) g/dL Lipase 64 (23-300) U/L 06/02/21 Range/Units 20:40 WBC 10.4 (4.0-10.5) K/mm3 RBC 4.59 (4.1-5.4) M/mm3 Hgb 13.4 (12.0-16.0) gm/dl Hct 42.3 (35-47) % MCV 92.2 (78-100) fl MCH 29.2 (26-32) pg MCHC 31.7 L (32-36) g/dl RDW 14.6 H (11.5-14.0) % Plt Count 405 (150-450) K/mm3 MPV 9.9 (7.5-11.0) fl Gran % 59.6 (36.0-66.0) % Eos # (Auto) 0.21 (0-0.5) Absolute Lymphs (auto) 3.11 (1.0-4.6) Absolute Monos (auto) 0.82 (0.0-1.3) Lymphocytes % 30.0 (24.0-44.0) % Monocytes % 7.9 (0.0-12.0) % Eosinophils % 2.0 (0.00-5.0) % Basophils % 0.5 (0.0-0.4) % Absolute Granulocytes 6.18 (1.4-6.9) Basophils # 0.05 (0-0.4) Sodium (137-145) mmol/L Potassium (3.5-5.1) mmol/L Chloride (98-107) mmol/L Carbon Dioxide (22-30) mmol/L Anion Gap (5-15) MEQ/L BUN (7-17) mg/dL Creatinine (0.52-1.04) mg/dL Estimated GFR ML/MIN Glucose (74-106) mg/dL Lactic Acid (0.4-2.0) Calcium (8.4-10.2) mg/dL Total Bilirubin (0.2-1.3) mg/dL AST (14-36) U/L ALT (0-35) U/L Alkaline Phosphatase (38-126) U/L Troponin I (0.000-0.034) ng/mL Serum Total Protein (6.3-8.2) g/dL Albumin (3.5-5.0) g/dL Lipase (23-300) U/L - Progress Progress Note: 06/03/21 00:29 Medical decision making: This patient has on her patient profile that she is allergic to iodine contrast. However, she is adamant that she is not allergic to IV contrast dye. I asked the research instrumentation technician to clarify with the patient. Patient again stated to the research instrumentation technician that she is not allergic to it and she does not want to be prepped prior to the CTA of the chest study. She will go ahead and proceed with the contrast dye without the prep. The patient understands that if she is truly allergic this may lead to a rash, or profound allergic reaction including respiratory complications, intubation and even . It may affect her kidney function acutely or in the long-term. She un derstands and wants to proceed with the CTA of the chest. 06/03/21 01:34 CAT scan of the chest with intravenous contrast shows no acute findings. Counseled pt/family regarding: lab results, diagnosis, need for follow-up, rad results - Departure Departure Disposition: Home Clinical Impression: Right-sided chest pain, Cough Condition: Stable Critical Care Time: No Referrals: BENITO DAS [Primary Care Provider] - Additional Instructions: Take your morphine medication at home as prescribed. Follow-up with your surgeon and your primary care physician on 06/05/2021 for further management Prescriptions: Azithromycin 250 mg [Zithromax 250 MG TABLET] 250 mg PO ZPACK #6 tablet
[2021-06-02] MEDS ORDERED: Zofran 4 MG/2 ML VIAL IV ONE (21:40)
[2021-06-02 21:47] LABS: Absolute Neutrophil Ct (ANC) 6.18 (1.4-6.9); BASOPHIL % 0.5 % (0.0-0.4); Basophil (Absolute #) 0.05 (0-0.4); Eosinophil (Absolute #) 0.21 (0-0.5); Hematocrit 42.3 % (35-47); Hemoglobin 13.4 gm/dl (12.0-16.0); Lymphocyte (Absolute #) 3.11 (1.0-4.6); Mean Cell Volume 92.2 fl (78-100); Mean Corpuscular Hemoglobin 29.2 pg (26-32); Mean Corpuscular Hgb Concent. 31.7 g/dl (32-36); Mean Platelet Volume 9.9 fl (7.5-11.0); Monocyte (Absolute #) 0.82 (0.0-1.3); Monocytes % 7.9 % (0.0-12.0); Neutrophil % 59.6 % (36.0-66.0); Platelet Count 405 K/mm3 (150-450); Red Blood Count 4.59 M/mm3 (4.1-5.4); Red Cell Distribution Width 14.6 % (11.5-14.0); White Blood Count 10.4 K/mm3 (4.0-10.5)
[2021-06-02] MEDS ORDERED: Zofran 4 MG/2 ML VIAL ONE (21:52)
[2021-06-02 21:54] LABS: ALBUMIN 4.2 g/dL (3.5-5.0); ALKALINE PHOSPHATASE 85 U/L (38-126); ANION GAP 9.7 MEQ/L (5-15); BLOOD UREA NITROGEN 15 mg/dL (7-17); CHLORIDE 100 mmol/L (98-107); Calcium 9.6 mg/dL (8.4-10.2); Carbon Dioxide 31 mmol/L (22-30); Creatinine 1 0.83 mg/dL (0.52-1.04); EST GLOMERULAR FILTRATION RATE > 60.0 ML/MIN; Glucose 104 mg/dL (74-106); LIPASE 64 U/L (23-300); SGOT/AST 28 U/L (14-36); SGPT/ALT 14 U/L (0-35); SODIUM 136 mmol/L (137-145); Total Protein 7.3 g/dL (6.3-8.2)
[2021-06-03] MEDS ORDERED: MORPHINE SULFATE 4 MG INJ IV ONE (00:44)
[2021-06-03] MEDS ORDERED: MORPHINE SULFATE 4 MG INJ ONE (01:24)
[2021-06-03] MEDS ORDERED: solu-MEDROL 125 MG, Sterile H2O 10 ml 2 ML IV ONE ×2 (01:37)
[2021-06-03] MEDS ORDERED: ROCEPHIN 1 Gm-D5w 50 ml Bag** 1 G/50 ML IVPB IV STA (01:37)
[2021-06-03] MEDS ORDERED: Sterile H2O 10 ml IJ ONE (01:56)
[2021-06-03] MEDS ORDERED: solu-MEDROL ONE (01:56)
[2021-06-03] MEDS ORDERED: ROCEPHIN 1 Gm-D5w 50 ml Bag** 1 G/50 ML IVPB IV ONE (01:56)
[2021-06-03 02:39] VITALS: BP 99/51; PULSE 61; O2SAT 93
--- NOTE | 2021-06-03 06:06 | XRAY ---
Indication: Right chest pain following bronchoscopy. Multiple contiguous axial images obtained through the chest using 100 cc Isovue 370 contrast. Comparison: May 11, 2021 Lungs again demonstrates mild pulmonary edema and biapical subpleural cystic changes. No suspicious pulmonary mass, infiltrate, effusion, or pneumothorax. Heart not enlarged. Aorta is normal in course and caliber. No pathologic mediastinal/hilar lymphadenopathy. Bony thorax intact again with minimal degenerative changes throughout the spine. Limited upper abdomen again demonstrates fatty liver and cholecystectomy clips. Impression: 1. Stable pulmonary emphysema, biapical subpleural cystic changes, and fatty liver. 2. Remaining CT chest with contrast exam is again negative. Comment: Preliminary interpretation made by [facility]. No critical discrepancy.
== END 2021-06-03 02:48 | disposition home or self-care (01) ==
LOC: ED 19:18
DX: R07.9 Chest pain, unspecified (principal); R05 Cough
CPT/HCPCS: 36000; 36415; 71260; 80053; 83605; 83690; 84484; 85025; 93005; 96374; 96375; 99284; J0696; J2270; J2405; J2930

== ENCOUNTER 2022-03-05 19:43 | Emergency (ER) | payer OTHER ==
--- NOTE | 2022-03-05 20:47 | ERPHSYRPT ---
- History of Present Illness Source: patient Exam Limitations: other (Poor historian) Patient Subjective Stated Complaint: pt states she has been having severe joint pain in entire body, numbness and tingling for 3 days. diarrhea and vomiting due to abnormal pancreas, pt states she needs a plexiblock for pancreas. pt states she is allergic to many pain meds but just wants to know what is. going on, and why she is having so much joint pain Triage Nursing Assessment: pt is alert and oriented able to walk slowly without assistance. states pain is a 8/10 in all joints. Physician History: 51 yo wf w multiple medical complaints presents w generalized arthralgias/N/V/D/GUZMAN/LUE numbness/Chest pain/cough x 3days. Timing/Duration: other (3 days) Severity: mild Modifying Factors: Improves With: movement Associated Symptoms: nausea, vomiting, chest pain, headaches Allergies/Adverse Reactions: diphenhydramine HCl [From Benadryl] Allergy (Intermediate, Verified 06/02/21 20:17) Hives hydrocodone bitartrate [From Lortab] Allergy (Mild, Verified 06/02/21 20:17) Iodinated Contrast Media Allergy (Mild, Verified 06/02/21 20:17) Hives Poultry Allergy (Mild, Verified 06/02/21 20:17) Hives acetaminophen [From Darvocet-N 100] Allergy (Unknown, Verified 06/02/21 20:17) benzonatate [From Tessalon Perles] Allergy (Unknown, Verified 06/02/21 20:17) codeine [Codeine] Allergy (Unknown, Verified 06/02/21 20:17) ibuprofen Allergy (Unknown, Verified 06/02/21 20:17) promethazine HCl [From Phenergan] Allergy (Unknown, Verified 06/02/21 20:17) propoxyphene napsylate [From Darvocet-N 100] Allergy (Unknown, Verified 06/02/21 20:17) sumatriptan [From Imitrex] Allergy (Unknown, Verified 06/02/21 20:17) sumatriptan succinate [From Imitrex] Allergy (Unknown, Verified 06/02/21 20:17) azithromycin Allergy (Verified 03/05/22 20:29) fluticasone [From Wixela Inhub] Allergy (Verified 06/02/21 20:18) influenza virus vaccine, specific [Influenza Virus Vacc,Specific] Allergy (Verified 06/02/21 20:17) ketorolac tromethamine [From Toradol] Allergy (Verified 06/02/21 20:17) Hives milk Allergy (Verified 06/02/21 20:17) Penicillins Allergy (Verified 06/02/21 20:17) pneumococcal vaccine [Pneumococcal Vaccine] Allergy (Verified 06/02/21 20:17) salmeterol [From Wixela Inhub] Allergy (Verified 06/02/21 20:18) Tetanus Vaccines and Toxoid [Tetanus Vaccines & Toxoid] Allergy (Verified 06/02/21 20:17) tramadol Allergy (Verified 06/02/21 20:17) EGGS Allergy (Mild, Uncoded 06/02/21 20:17) RASH Home Medications: Aspirin [Aspir-Low] 81 mg PO DAILY 10/29/17 [History] Albuterol 8 gm Mdi Hfa [Ventolin Hfa MDI] 2 inhaler IN Q6H PRN PRN 04/22/21 [History] Escitalopram Oxalate 10 mg [Lexapro 10 MG] 10 mg PO DAILY 04/22/21 [History] Fluticasone Propion/Salmeterol [Wixela 250-50 Inhub] 1 inhaler IH DAILY 04/22/21 [History] Furosemide 20 mg [Lasix 20 mg] 20 mg PO DAILY PRN 04/22/21 [History] Isosorbide Mononitrate 30 mg [Imdur 30 MG] 30 mg PO DAILY 04/22/21 [History] Metoprolol Succinate [Toprol Xl] 25 mg PO DAILY 04/22/21 [History] lisinopriL [Lisinopril] 2.5 mg PO DAILY 04/22/21 [History] Hx Tetanus, Diphtheria Vaccination/Date Given: No Hx Influenza Vaccination/Date Given: No Hx Pneumococcal Vaccination/Date Given: No Travel Risk - International Travel Have you traveled outside of the country in past 3 weeks: No - Coronavirus Screening Are you exhibiting any of the following symptoms?: Yes Symptoms: Vomiting/Diarrhea Close contact with a COVID-19 positive Pt in past 14-21 Days: No - Vaccine Status Have you recieved a Covid-19 vaccination: Yes 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 - Vaccination Dates Date of 2cond Vaccination (if applicable): unknown - Review of Systems Constitutional: No Symptoms, Chills, Fatigue Eyes: No Symptoms Ears, Nose, & Throat: No Symptoms Respiratory: No Symptoms, Cough Cardiac: No Symptoms, Chest Pain Abdominal/Gastrointestinal: No Symptoms, Abdominal Pain, Nausea, Vomiting, Diarrhea Genitourinary Symptoms: No Symptoms Musculoskeletal: No Symptoms, Arthralgias Skin: No Symptoms, Skin Lesions Neurological: Headache, Parasthesia (LUE) Psychological: No Symptoms Endocrine: No Symptoms Hematologic/Lymphatic: No Symptoms Immunological/Allergic: No Symptoms - Past Medical History Pertinent Past Medical History: Yes Neurological History: Seizures, TIA ENT History: No Pertinent History Cardiac History: Angina, Arrhythmia, Myocardial Infarction ([place]) Respiratory History: Asthma, Bronchitis, COPD, Pneumonia, Other Endocrine Medical History: No Pertinent History Musculoskeletal History: Other GI Medical History: No Pertinent History History: No Pertinent History Psycho-Social History: Depression Female Reproductive Disorders: Endometriosis Other Medical History: disc in back,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 - Past Surgical History Past Surgical History: Yes Neuro Surgical History: Neurological Surgery, Other Cardiac: Cardiac Catheterization Respiratory: No Pertinent History Gastrointestinal: Cholecystectomy Genitourinary: No Pertinent History Musculoskeletal: Orthopedic Surgery Female Surgical History: Section, Hysterectomy Other Surgical History: brain stem surgery, t & a, laser surgery on cyst on back of neck - Social History Smoking Status: Current every day smoker How long have you smoked: 22 years Exposure to second hand smoke: Yes Drug Use: none Patient Lives Alone: Yes Significant Family History: no pertinent family hx - Nursing Vital Signs Nursing Vital Signs: Initial Vital Signs Temperature 98.1 F 03/05/22 20:15 Pulse Rate 72 03/05/22 20:15 Respiratory Rate 18 03/05/22 20:15 Blood Pressure 115/68 03/05/22 20:15 O2 Sat by Pulse Oximetry 97 03/05/22 20:15 Pain Scale Pain Intensity [] 8 Pain Intensity 5 WNL - Physical Exam General Appearance: no apparent distress Eye Exam: PERRL/EOMI, eyes nml inspection Ears, Nose, Throat Exam: normal ENT inspection, TMs normal, pharynx normal, moist mucous membranes Neck Exam: normal inspection, non-tender, supple, full range of motion, No meningismus, No mass, No Brudzinski, No Kernig's Respiratory Exam: normal breath sounds, lungs clear, airway intact, No respiratory distress Cardiovascular Exam: regular rate/rhythm, normal heart sounds, normal peripheral pulses, capillary refill <2 sec, No murmur Gastrointestinal/Abdomen Exam: soft, normal bowel sounds, tenderness (Mild diffuse TTP) Extremity Exam: normal inspection, normal range of motion Neurologic Exam: alert, 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, cooperative, blanket inspector II-XII nml as tested, normal mood/affect, nml cerebellar function, nml station & gait, sensation nml, No motor deficits, No sensory deficit Skin Exam: normal color, warm, dry Lymphatic Exam: No adenopathy SpO2 Interpretation: normal SpO2: 97 O2 Delivery: Room Air - Course Nursing assessment & vital signs reviewed: Yes EKG Interpreted by Me: RATE (NSR/R70/Low voltage/Prolonged QTc/No acute ST changes) - Radiology Exams Chest X-ray Interpretation: Interpreted by me (CXR NAD per ER read) - CT Exams Head CT Interpretation: Tele-radiologist Report (CT head NAD) Ordered Tests: Active Orders 24 hr Category Date Time Status EKG-ER Only STAT Care 03/05/22 20:40 Completed IV Insertion STAT Care 03/05/22 20:58 Completed CHEST 1 VIEW (PORTABLE) Stat Exams 03/05/22 20:41 Taken HEAD WITHOUT CONTRAST [CT] Stat Exams 03/05/22 22:15 Taken AMYLASE Stat Lab 03/05/22 21:10 Completed CBC W DIFF Stat Lab 03/05/22 21:10 Completed CMP Stat Lab 03/05/22 21:10 Completed CULTURE,URINE Stat Lab 03/05/22 22:25 Received ESR [Erythrocyte Sedimentation Rate] Stat Lab 03/05/22 21:10 Completed LIPASE Stat Lab 03/05/22 21:10 Completed Lactic Acid Stat Lab 03/05/22 21:05 Completed TROPONIN Q3H Lab 03/05/22 21:10 Completed UA W/RFX CULTURE Stat Lab 03/05/22 22:25 Completed Medication Summary Discontinued Medications Generic Name Dose Route Start Last Admin Trade Name Freq PRN Reason Stop Dose Admin Dexamethasone Sodium Phosphate 10 mg 03/05/22 23:16 03/05/22 23:22 Dexamethasone Sod Phosphate 10 Mg/Ml IM 03/05/22 23:17 10 mg STAT ONE Administration Dexamethasone Sodium Phosphate Confirm 03/05/22 23:20 Dexamethasone Sod Phosphate 10 Mg/Ml Administered 03/05/22 23:21 Dose 10 mg .ROUTE .STK-MED ONE Orphenadrine Citrate 60 mg 03/05/22 23:16 03/05/22 23:22 Orphenadrine Citrate 60 Mg/2 Ml Amp IM 03/05/22 23:17 60 mg STAT ONE Administration Orphenadrine Citrate Confirm 03/05/22 23:20 Orphenadrine Citrate 60 Mg/2 Ml Amp Administered 03/05/22 23:21 Dose 60 mg .ROUTE .[facility] ONE Lab/Rad Data: Laboratory Result Diagrams 03/05/22 21:10 03/05/22 21:10 Laboratory Results 03/05/22 03/05/22 03/05/22 Range/Units 22:25 21:10 21:10 WBC (4.0-10.5) K/mm3 RBC (4.1-5.4) M/mm3 Hgb (12.0-16.0) gm/dl Hct (35-47) % MCV (78-100) fl MCH (26-32) pg MCHC (32-36) g/dl RDW (11.5-14.0) % Plt Count (150-450) K/mm3 MPV (7.5-11.0) fl Gran % (36.0-66.0) % Eos # (Auto) (0-0.5) Absolute Lymphs (auto) (1.0-4.6) Absolute Monos (auto) (0.0-1.3) Lymphocytes % (24.0-44.0) % Monocytes % (0.0-12.0) % Eosinophils % (0.00-5.0) % Basophils % (0.0-0.4) % Absolute Granulocytes (1.4-6.9) Basophils # (0-0.4) ESR 21 H (0-20) mm/hr Sodium (137-145) mmol/L Potassium (3.5-5.1) mmol/L Chloride (98-107) mmol/L Carbon Dioxide (22-30) mmol/L Anion Gap (5-15) MEQ/L BUN (7-17) mg/dL Creatinine (0.52-1.04) mg/dL Estimated GFR ML/MIN Glucose (74-106) mg/dL Lactic Acid (0.4-2.0) Calcium (8.4-10.2) mg/dL Total Bilirubin (0.2-1.3) mg/dL AST (14-36) U/L ALT (0-35) U/L Alkaline Phosphatase (38-126) U/L Troponin I (0.000-0.034) ng/mL Serum Total Protein (6.3-8.2) g/dL Albumin (3.5-5.0) g/dL Amylase (30-110) U/L Lipase (23-300) U/L Urinalys Dipstick Clnc MAIN LAB Urine Color YELLOW (YELLOW) Urine Appearance CLEAR (CLEAR) Urine pH 5.5 (5-6) Ur Specific Apison >=1.030 (1.005-1.025) POC Urine Protein Conf NEGATIVE (Negative) Urine Ketones NEGATIVE (NEGATIVE) Urine Nitrite NEGATIVE (NEGATIVE) Urine Bilirubin NEGATIVE (NEGATIVE) Urine Urobilinogen 0.2 (0-1) mg/dL Urine Leukocytes NEGATIVE (NEGATIVE) Urine WBC (Auto) 3-5 (0-5) /HPF Urine RBC (Auto) 3-5 (0-2) /HPF U Epithel Cells (Auto) RARE (FEW) /HPF Urine Bacteria (Auto) MANY (NEGATIVE) /HPF Urine RBC NEGATIVE (0-5) Jim/ul Urine Mucus (Auto) SLIGHT (NEGATIVE) /HPF Ur Culture Indicated? YES Urine Glucose NEGATIVE (NEGATIVE) mg/dL Influenza Type A Ag NEGATIVE (NEGATIVE) Influenza Type B Ag NEGATIVE (NEGATIVE) RSV (PCR) NEGATIVE (Negative) SARS-CoV-2 (PCR) NEGATIVE (NEGATIVE) 03/05/22 03/05/22 03/05/22 Range/Units 21:10 21:10 21:10 WBC 10.2 (4.0-10.5) K/mm3 RBC 4.50 (4.1-5.4) M/mm3 Hgb 13.6 (12.0-16.0) gm/dl Hct 41.7 (35-47) % MCV 92.7 (78-100) fl MCH 30.2 (26-32) pg MCHC 32.6 (32-36) g/dl RDW 14.7 H (11.5-14.0) % Plt Count 313 (150-450) K/mm3 MPV 9.6 (7.5-11.0) fl Gran % 49.1 (36.0-66.0) % Eos # (Auto) 0.42 (0-0.5) Absolute Lymphs (auto) 3.95 (1.0-4.6) Absolute Monos (auto) 0.76 (0.0-1.3) Lymphocytes % 38.9 (24.0-44.0) % Monocytes % 7.5 (0.0-12.0) % Eosinophils % 4.1 (0.00-5.0) % Basophils % 0.4 (0.0-0.4) % Absolute Granulocytes 4.99 (1.4-6.9) Basophils # 0.04 (0-0.4) ESR (0-20) mm/hr Sodium 137 (137-145) mmol/L Potassium 4.3 (3.5-5.1) mmol/L Chloride 101 (98-107) mmol/L Carbon Dioxide 30 (22-30) mmol/L Anion Gap 9.9 (5-15) MEQ/L BUN 11 (7-17) mg/dL Creatinine 0.72 (0.52-1.04) mg/dL Estimated GFR > 60.0 ML/MIN Glucose 105 (74-106) mg/dL Lactic Acid (0.4-2.0) Calcium 8.7 (8.4-10.2) mg/dL Total Bilirubin 0.30 (0.2-1.3) mg/dL AST 25 (14-36) U/L ALT 16 (0-35) U/L Alkaline Phosphatase 75 (38-126) U/L Troponin I < 0.012 (0.000-0.034) ng/mL Serum Total Protein 6.9 (6.3-8.2) g/dL Albumin 3.9 (3.5-5.0) g/dL Amylase 65 (30-110) U/L Lipase 88 (23-300) U/L Urinalys Dipstick Clnc Urine Color (YELLOW) Urine Appearance (CLEAR) Urine pH (5-6) Ur Specific Apison (1.005-1.025) POC Urine Protein Conf (Negative) Urine Ketones (NEGATIVE) Urine Nitrite (NEGATIVE) Urine Bilirubin (NEGATIVE) Urine Urobilinogen (0-1) mg/dL Urine Leukocytes (NEGATIVE) Urine WBC (Auto) (0-5) /HPF Urine RBC (Auto) (0-2) /HPF U Epithel Cells (Auto) (FEW) /HPF Urine Bacteria (Auto) (NEGATIVE) /HPF Urine RBC (0-5) Jim/ul Urine Mucus (Auto) (NEGATIVE) /HPF Ur Culture Indicated? Urine Glucose (NEGATIVE) mg/dL Influenza Type A Ag (NEGATIVE) Influenza Type B Ag (NEGATIVE) RSV (PCR) (Negative) SARS-CoV-2 (PCR) (NEGATIVE) 03/05/22 Range/Units 21:05 WBC (4.0-10.5) K/mm3 RBC (4.1-5.4) M/mm3 Hgb (12.0-16.0) gm/dl Hct (35-47) % MCV (78-100) fl MCH (26-32) pg MCHC (32-36) g/dl RDW (11.5-14.0) % Plt Count (150-450) K/mm3 MPV (7.5-11.0) fl Gran % (36.0-66.0) % Eos # (Auto) (0-0.5) Absolute Lymphs (auto) (1.0-4.6) Absolute Monos (auto) (0.0-1.3) Lymphocytes % (24.0-44.0) % Monocytes % (0.0-12.0) % Eosinophils % (0.00-5.0) % Basophils % (0.0-0.4) % Absolute Granulocytes (1.4-6.9) Basophils # (0-0.4) ESR (0-20) mm/hr Sodium (137-145) mmol/L Potassium (3.5-5.1) mmol/L Chloride (98-107) mmol/L Carbon Dioxide (22-30) mmol/L Anion Gap (5-15) MEQ/L BUN (7-17) mg/dL Creatinine (0.52-1.04) mg/dL Estimated GFR ML/MIN Glucose (74-106) mg/dL Lactic Acid 1.4 (0.4-2.0) Calcium (8.4-10.2) mg/dL Total Bilirubin (0.2-1.3) mg/dL AST (14-36) U/L ALT (0-35) U/L Alkaline Phosphatase (38-126) U/L Troponin I (0.000-0.034) ng/mL Serum Total Protein (6.3-8.2) g/dL Albumin (3.5-5.0) g/dL Amylase (30-110) U/L Lipase (23-300) U/L Urinalys Dipstick Clnc Urine Color (YELLOW) Urine Appearance (CLEAR) Urine pH (5-6) Ur Specific Apison (1.005-1.025) POC Urine Protein Conf (Negative) Urine Ketones (NEGATIVE) Urine Nitrite (NEGATIVE) Urine Bilirubin (NEGATIVE) Urine Urobilinogen (0-1) mg/dL Urine Leukocytes (NEGATIVE) Urine WBC (Auto) (0-5) /HPF Urine RBC (Auto) (0-2) /HPF U Epithel Cells (Auto) (FEW) /HPF Urine Bacteria (Auto) (NEGATIVE) /HPF Urine RBC (0-5) Jim/ul Urine Mucus (Auto) (NEGATIVE) /HPF Ur Culture Indicated? Urine Glucose (NEGATIVE) mg/dL Influenza Type A Ag (NEGATIVE) Influenza Type B Ag (NEGATIVE) RSV (PCR) (Negative) SARS-CoV-2 (PCR) (NEGATIVE) - Progress Progress Note: 03/05/22 23:18 10mg IM Decadron/60mg IM Norflex Counseled pt/family regarding: lab results, diagnosis, need for follow-up, rad results - Departure Clinical Impression: Myalgia, UTI (urinary tract infection) Condition: Stable Critical Care Time: No Referrals: BENITO DAS [Primary Care Provider] - Follow up/PCP as directed Instructions: Urinary Tract Infection, Adult (DC) Additional Instructions: Start Macrobid twice a day for 5 days Fluids Follow up with your family MD Return to ER as needed Forms: Work/School Release Form Prescriptions: Nitrofurantoin Monohyd/M-Cryst [Macrobid 100 mg Capsule] 100 mg PO BID 5 Days #10
[2022-03-05 21:21] LABS: Absolute Neutrophil Ct (ANC) 4.99 (1.4-6.9); Basophil (Absolute #) 0.04 (0-0.4); Eosinophil % 4.1 % (0.00-5.0); Eosinophil (Absolute #) 0.42 (0-0.5); Hematocrit 41.7 % (35-47); Hemoglobin 13.6 gm/dl (12.0-16.0); Lymphocyte (Absolute #) 3.95 (1.0-4.6); Lymphocytes % 38.9 % (24.0-44.0); Mean Cell Volume 92.7 fl (78-100); Mean Corpuscular Hemoglobin 30.2 pg (26-32); Mean Corpuscular Hgb Concent. 32.6 g/dl (32-36); Mean Platelet Volume 9.6 fl (7.5-11.0); Monocyte (Absolute #) 0.76 (0.0-1.3); Monocytes % 7.5 % (0.0-12.0); Neutrophil % 49.1 % (36.0-66.0); Platelet Count 313 K/mm3 (150-450); Red Cell Distribution Width 14.7 % (11.5-14.0); White Blood Count 10.2 K/mm3 (4.0-10.5)
[2022-03-05 21:30] LABS: ALBUMIN 3.9 g/dL (3.5-5.0); ALKALINE PHOSPHATASE 75 U/L (38-126); AMYLASE 65 U/L (30-110); ANION GAP 9.9 MEQ/L (5-15); BLOOD UREA NITROGEN 11 mg/dL (7-17); CHLORIDE 101 mmol/L (98-107); Calcium 8.7 mg/dL (8.4-10.2); Carbon Dioxide 30 mmol/L (22-30); Creatinine 1 0.72 mg/dL (0.52-1.04); EST GLOMERULAR FILTRATION RATE > 60.0 ML/MIN; Glucose 105 mg/dL (74-106); LIPASE 88 U/L (23-300); Potassium 4.3 mmol/L (3.5-5.1); SGOT/AST 25 U/L (14-36); SGPT/ALT 16 U/L (0-35); SODIUM 137 mmol/L (137-145); Total Protein 6.9 g/dL (6.3-8.2)
[2022-03-05 21:53] LABS: INFLUENZA A NEGATIVE (NEGATIVE); INFLUENZA B NEGATIVE (NEGATIVE); RESPIRATORY SYNCTIAL VIRUS NEGATIVE (Negative); SARS-CoV-2 Xpert Express NEGATIVE (NEGATIVE)
[2022-03-05 22:34] LABS: Appearance CLEAR (CLEAR); Bilirubin NEGATIVE (NEGATIVE); Dipstick done @ ? MAIN LAB; Glucose NEGATIVE (NEGATIVE); Ketones NEGATIVE (NEGATIVE); Nitrite NEGATIVE (NEGATIVE); Ph 5.5 (5-6); Protein,Urine Dip NEGATIVE (Negative); RBC NEGATIVE Ery/ul (0-5); Specific Gravity >=1.030 (1.005-1.025); Urobilinogen 0.2 mg/dL (0-1)
[2022-03-05 22:36] LABS: Bacteria MANY /HPF (NEGATIVE); Epithelial Cells RARE /HPF (FEW); Mucus SLIGHT /HPF (NEGATIVE)
[2022-03-05 22:37] LABS: Urine Cultured Indicated? YES
[2022-03-05] MEDS ORDERED: DECADRON 10MG INJ. IM ONE (23:16)
[2022-03-05] MEDS ORDERED: Norflex 60 MG/2 ML IM ONE (23:16)
[2022-03-05] MEDS ORDERED: Norflex 60 MG/2 ML ONE (23:20)
[2022-03-05] MEDS ORDERED: DECADRON 10MG INJ. ONE (23:20)
[2022-03-05 23:54] VITALS: BP 111/65; PULSE 71
[2022-03-06 02:50] VITALS: O2SAT 97
--- NOTE | 2022-03-06 08:36 | XRAY ---
Indication: Cough. Comparison: April 22, 2021. Portable chest again demonstrates normal heart and lungs. Bony thorax intact with mild degenerative changes. No new/acute findings.
--- NOTE | 2022-03-06 08:38 | XRAY ---
Indication: Headache and left-sided numbness. Joint pain. History TIA. Multiple contiguous images obtained through the head without contrast. Comparison: November 17, 2020. Stable small right basal ganglia lacunar infarct. No acute intracranial hemorrhage, abnormal extra-axial fluid collection, or mass effect. Fourth ventricle is midline without hydrocephalus. Au-white matter differentiation preserved. Bony calvarium intact. Paranasal sinuses clear. Again partial opacification right mastoid air cells presumed inflammatory. Impression: 1. Stable remote lacunar infarct right basal ganglia. 2. No new/acute intracranial abnormalities. 3. Stable partial opacification right mastoid air cells presumed inflammatory. Comment: Preliminary interpretation made by [facility]. No critical discrepancy.
== END 2022-03-06 | disposition home or self-care (01) ==
LOC: ED 19:43
DX: N39.0 Urinary tract infection, site not specified (principal); M79.10 Myalgia, unspecified site; R11.2 Nausea with vomiting, unspecified; R19.7 Diarrhea, unspecified; R51.9 Headache, unspecified; R20.0 Anesthesia of skin; R07.9 Chest pain, unspecified; R05.1 Acute cough; J44.9 Chronic obstructive pulmonary disease, unspecified; Z72.0 Tobacco use; Z79.899 Other long term (current) drug therapy
CPT/HCPCS: 0241U; 36000; 36415; 70450; 71045; 80053; 81015; 82150; 83605; 83690; 84484; 85025; 85652; 87086; 93005; 96372; 99284; J1100; J2360

== ENCOUNTER 2022-03-18 15:30 | Emergency (ER) | payer OTHER ==
[2022-03-18] MEDS ORDERED: PROVENTIL 2.5 MG/3 ML NEB IH ONE (15:38)
[2022-03-18] MEDS ORDERED: DUONEB 0.5-3 MG/3 ml Neb IH ONE (15:54)
--- NOTE | 2022-03-18 15:59 | ERPHSYRPT ---
- History of Present Illness Time Seen by Provider: 03/18/22 15:55 Source: patient Exam Limitations: no limitations Patient Subjective Stated Complaint: pt here for increase sob for last 2 days. with dry cough, no fever, was tested 2 weeks ago for covid and was negative Triage Nursing Assessment: pt alert, resp easy, skin w/d/p. has dry hacking c ough, diminished BS throughtout, no edema noted, co left arm, left rib and epigastric pain Physician History: pt has asthma , but not this bad prior, has small vessel cardiac dx - no procedures, and has abd pain, with workup pending UGI. some tnderness there. Timing/Duration: today, week(s) Severity of Dyspnea-Max: moderate Severity of Dyspnea-Current: moderate Possible Cause: occasional episodes Associated Symptoms: cough, wheezing Allergies/Adverse Reactions: diphenhydramine HCl [From Benadryl] Allergy (Intermediate, Verified 03/18/22 15:46) Hives hydrocodone bitartrate [From Lortab] Allergy (Mild, Verified 03/18/22 15:46) Poultry Allergy (Mild, Verified 03/18/22 15:46) Hives acetaminophen [From Darvocet-N 100] Allergy (Unknown, Verified 03/18/22 15:46) benzonatate [From Tessalon Perles] Allergy (Unknown, Verified 03/18/22 15:46) codeine [Codeine] Allergy (Unknown, Verified 03/18/22 15:46) ibuprofen Allergy (Unknown, Verified 03/18/22 15:46) promethazine HCl [From Phenergan] Allergy (Unknown, Verified 03/18/22 15:46) propoxyphene napsylate [From Darvocet-N 100] Allergy (Unknown, Verified 03/18/22 15:46) sumatriptan [From Imitrex] Allergy (Unknown, Verified 03/18/22 15:46) sumatriptan succinate [From Imitrex] Allergy (Unknown, Verified 03/18/22 15:46) azithromycin Allergy (Verified 03/18/22 15:46) fluticasone [From Wixela Inhub] Allergy (Verified 03/18/22 15:46) influenza virus vaccine, specific [Influenza Virus Vacc,Specific] Allergy (Verified 03/18/22 15:46) ketorolac tromethamine [From Toradol] Allergy (Verified 03/18/22 15:46) Hives milk Allergy (Verified 03/18/22 15:46) Penicillins Allergy (Verified 03/18/22 15:46) pneumococcal vaccine [Pneumococcal Vaccine] Allergy (Verified 03/18/22 15:46) salmeterol [From Wixela Inhub] Allergy (Verified 03/18/22 15:46) Tetanus Vaccines and Toxoid [Tetanus Vaccines & Toxoid] Allergy (Verified 03/18/22 15:46) tramadol Allergy (Verified 03/18/22 15:46) EGGS Allergy (Mild, Uncoded 03/18/22 15:46) RASH Home Medications: Aspirin [Aspir-Low] 81 mg PO DAILY 10/29/17 [History] Albuterol 8 gm Mdi Hfa [Ventolin Hfa MDI] 2 inhaler IN Q6H PRN PRN 04/22/21 [History] Escitalopram Oxalate [Lexapro 10 MG] 10 mg PO DAILY 04/22/21 [History] Fluticasone Propion/Salmeterol [Wixela 250-50 Inhub] 1 inhaler IH DAILY 04/22/21 [History] Furosemide 20 mg [Lasix 20 mg] 20 mg PO DAILY PRN 04/22/21 [History] Isosorbide Mononitrate 30 mg [Imdur 30 MG] 30 mg PO DAILY 04/22/21 [History] Metoprolol Succinate [Toprol Xl] 25 mg PO DAILY 04/22/21 [History] lisinopriL [Lisinopril] 2.5 mg PO DAILY 04/22/21 [History] Hx Tetanus, Diphtheria Vaccination/Date Given: No Hx Influenza Vaccination/Date Given: No Hx Pneumococcal Vaccination/Date Given: No Immunizations Up to Date: Yes Travel Risk - International Travel Have you traveled outside of the country in past 3 weeks: No - Coronavirus Screening Symptoms: Cough: New Onset, Shortness of Breath - Vaccine Status Have you recieved a Covid-19 vaccination: Yes 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: [employer] - Vaccination Dates Date of 2cond Vaccination (if applicable): unknown - Review of Systems Constitutional: No Fever, No Chills Eyes: No Symptoms Ears, Nose, & Throat: No Symptoms Respiratory: Cough, Dyspnea Cardiac: No Chest Pain, No Edema, No Syncope Abdominal/Gastrointestinal: Abdominal Pain, No Nausea, No Vomiting, No Diarrhea Genitourinary Symptoms: No Dysuria Musculoskeletal: No Back Pain, No Neck Pain Skin: No Rash Neurological: No Dizziness, No Focal Weakness, No Sensory Changes Psychological: No Symptoms Endocrine: No Symptoms All Other Systems: Reviewed and Negative - Past Medical History Pertinent Past Medical History: Yes Neurological History: Seizures, TIA ENT History: No Pertinent History Cardiac History: Angina, Arrhythmia, Myocardial Infarction ([place]) Respiratory History: Asthma, Bronchitis, COPD, Pneumonia, Other Endocrine Medical History: No Pertinent History Musculoskeletal History: Other GI Medical History: No Pertinent History, Pancreatitis History: No Pertinent History Psycho-Social History: Depression Female Reproductive Disorders: Endometriosis Other Medical History: disc in back,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,lupus - Past Surgical History Past Surgical History: Yes Neuro Surgical History: Neurological Surgery, Other Cardiac: Cardiac Catheterization Respiratory: No Pertinent History Gastrointestinal: Cholecystectomy Genitourinary: No Pertinent History Musculoskeletal: Orthopedic Surgery Female Surgical History: Section, Hysterectomy Other Surgical History: brain stem surgery, t & a, laser surgery on cyst on back of neck - Social History Smoking Status: Current every day smoker How long have you smoked: 22 years Exposure to second hand smoke: Yes Drug Use: none Patient Lives Alone: Yes Significant Family History: no pertinent family hx - Nursing Vital Signs Nursing Vital Signs: Initial Vital Signs Temperature 97.2 F 03/18/22 15:34 Pulse Rate 115 H 03/18/22 15:34 Respiratory Rate 26 H 03/18/22 15:34 Blood Pressure 131/108 03/18/22 15:34 O2 Sat by Pulse Oximetry 98 03/18/22 15:34 Pain Scale Pain Intensity 9 - Physical Exam General Appearance: no apparent distress, alert Eye Exam: PERRL/EOMI Neck Exam: normal inspection, supple Respiratory Exam: rhonchi Cardiovascular/Chest Exam: normal heart sounds, regular rate/rhythm Abdominal/Gastrointestinal Exam: soft, No tenderness, No distention, No mass Extremity Exam: non-tender, normal range of motion, normal inspection, no calf tenderness, no pedal edema Peripheral Pulses Exam: carotid (R): 2+, carotid (L): 2+, femoral (R): 2+, femoral (L): 2+, dorsalis-pedis (R): 2+, dorsalis-pedis (L): 2+ Neurologic Exam: alert, 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, cooperative, private client advisor II-XII nml as tested, sensation nml, No motor deficits Skin Exam: normal color, warm, No dry SpO2 Interpretation: normal SpO2: 97 O2 Delivery: Room Air - Course Nursing assessment & vital signs reviewed: Yes EKG Interpreted by Me: Sinus Tach, prolonged QT interval, Non-specific ST Changes - CT Exams Chest CT Interpretation: Tele-radiologist Report, Other (nodesDDD) Abdomen/Pelvis CT Interpretation: Tele-radiologist Report, Normal Appendix, Other (diverti culosis djd umb hernia) Ordered Tests: Active Orders 24 hr Category Date Time Status Instrumentation And Control Technician STAT Care 03/18/22 15:49 Active EKG-ER Only STAT Care 03/18/22 15:48 Active IV Insertion STAT Care 03/18/22 15:48 Active Pulse Oximetry (ED) STAT Care 03/18/22 15:48 Active ABDOMEN AND PELVIS W/0 CONTRAS [CT] Stat Exams 03/18/22 16:21 Taken CHEST 1 VIEW (PORTABLE) Stat Exams 03/18/22 15:58 Taken CHEST WITHOUT CONTRAST [CT] Stat Exams 03/18/22 16:04 Taken AMYLASE Stat Lab 03/18/22 16:15 Completed CBC W DIFF Stat Lab 03/18/22 16:15 Completed CMP Stat Lab 03/18/22 16:15 Completed CULTURE,URINE Stat Lab 03/18/22 17:13 Received HCG QUALITATIVE,SERUM Stat Lab 03/18/22 16:15 Completed LIPASE Stat Lab 03/18/22 16:15 Completed Lactic Acid Stat Lab 03/18/22 16:15 Completed Lactic Acid Stat Lab 03/18/22 18:24 Completed NT PRO BNP Stat Lab 03/18/22 16:15 Completed TROPONIN Q3H Lab 03/18/22 16:15 Completed TROPONIN Q3H Lab 03/18/22 19:19 Completed TROPONIN Q3H Lab 03/18/22 22:15 Ordered TROPONIN Q3H Lab 03/19/22 01:15 Ordered TROPONIN Q3H Lab 03/19/22 04:15 Ordered UA W/RFX CULTURE Stat Lab 03/18/22 17:13 Completed Respiratory Therapy Assessment DAILY RT 03/18/22 16:32 Completed Medication Summary Generic Name Dose Route Start Last Admin Trade Name Miguel PRN Reason Stop Dose Admin Sodium Chloride 1,000 mls @ 100 mls/hr 03/18/22 16:00 03/18/22 16:36 Sodium Chloride 0.9% 1000 Ml IV 04/17/22 15:59 100 mls/hr .Q10H EDUAR Administration Discontinued Medications Generic Name Dose Route Start Last Admin Trade Name Miguel PRN Reason Stop Dose Admin Albuterol Sulfate Confirm 03/18/22 15:38 Albuterol Sulfate 2.5 Mg/3 Ml Neb Administered 03/18/22 15:39 Dose 2.5 mg IH .STK-MED ONE Albuterol/Ipratropium 3 ml 03/18/22 15:54 03/18/22 16:00 Ipratropium/Albuterol Sulfate 3 Ml Ampul.Neb IH 03/18/22 15:55 3 ml STAT ONE Administration Methylprednisolone Sodium 0 mg 03/18/22 16:00 03/18/22 16:34 Succinate 125 mg/ Sterile IV 03/18/22 16:01 125 mg Water 2 ml STAT ONE Administration Famotidine 20 mg 03/18/22 16:00 03/18/22 16:35 Famotidine 20 Mg/1 Vial IV 03/18/22 16:01 20 mg STAT ONE Administration Famotidine Confirm 03/18/22 16:15 Famotidine 20 Mg/1 Vial Administered 03/18/22 16:16 Dose 20 mg IV .STK-MED ONE Methylprednisolone Sodium Succinate Confirm 03/18/22 16:15 Methylprednis Sod Succ 125 Mg/2 Ml Vial Administered 03/18/22 16:16 Dose 125 mg .ROUTE .STK-MED ONE Ondansetron HCl 4 mg 03/18/22 16:00 03/18/22 16:35 Ondansetron Hcl 4 Mg/2 Ml Vial IV 03/18/22 16:01 4 mg STAT ONE Administration Ondansetron HCl Confirm 03/18/22 16:16 Ondansetron Hcl 4 Mg/2 Ml Vial Administered 03/18/22 16:17 Dose 4 mg .ROUTE .STK-MED ONE Pantoprazole Sodium 40 mg 03/18/22 16:00 03/18/22 16:34 Pantoprazole 40 Mg Vial IV 03/18/22 16:01 40 mg STAT ONE Administration Pantoprazole Sodium Confirm 03/18/22 16:15 Pantoprazole 40 Mg Vial Administered 03/18/22 16:16 Dose 40 mg IV .[employer] ONE Sterile Water Confirm 03/18/22 16:15 Water For Injection,Sterile 10 Ml Vial Administered 03/18/22 16:16 Dose 10 ml IJ [email or web address] ONE Lab/Rad Data: Laboratory Result Diagrams 03/18/22 16:15 03/18/22 16:15 Laboratory Results 03/18/22 03/18/22 03/18/22 Range/Units 19:58 19:19 18:24 WBC (4.0-10.5) x10^3/uL RBC (4.1-5.4) x10^6/uL Hgb (12.0-16.0) g/dL Hct (35-47) % MCV (78-100) fL MCH (26-32) pg MCHC (32-36) g/dL RDW (11.5-14.0) % Plt Count (150-450) x10^3/uL MPV (7.5-11.0) fL Gran % (36.0-66.0) % Immature Gran % (Auto) (0.00-0.4) % Nucleat RBC Rel Count (0.00-0.1) % Eos # (Auto) (0-0.5) x10^3/uL Immature Gran # (Auto) (0.00-0.03) x10^3u/L Absolute Lymphs (auto) (1.0-4.6) x10^3/uL Absolute Monos (auto) (0.0-1.3) x10^3/uL Absolute Nucleated RBC (0.00-0.01) x10^3u/L Lymphocytes % (24.0-44.0) % Monocytes % (0.0-12.0) % Eosinophils % (0.00-5.0) % Basophils % (0.0-0.4) % Absolute Granulocytes (1.4-6.9) x10^3/uL Basophils # (0-0.4) x10^3/uL Sodium (137-145) mmol/L Potassium (3.5-5.1) mmol/L Chloride (98-107) mmol/L Carbon Dioxide (22-30) mmol/L Anion Gap (5-15) MEQ/L BUN (7-17) mg/dL Creatinine (0.52-1.04) mg/dL Estimated GFR ML/MIN Glucose (74-106) mg/dL Lactic Acid 1.2 (0.4-2.0) Calcium (8.4-10.2) mg/dL Total Bilirubin (0.2-1.3) mg/dL AST (14-36) U/L ALT (0-35) U/L Alkaline Phosphatase (38-126) U/L Troponin I < 0.012 (0.000-0.034) ng/mL NT-Pro-B Natriuret Pep (0-900) pg/mL Serum Total Protein (6.3-8.2) g/dL Albumin (3.5-5.0) g/dL Amylase (30-110) U/L Lipase (23-300) U/L Serum , Qual (Negative) Urinalys Dipstick Clnc Urine Color (YELLOW) Urine Appearance (CLEAR) Urine pH (5-6) Ur Specific [place] (1.005-1.025) POC Urine Protein Conf (Negative) Urine Ketones (NEGATIVE) Urine Nitrite (NEGATIVE) Urine Bilirubin (NEGATIVE) Urine Urobilinogen (0-1) mg/dL Urine Leukocytes (NEGATIVE) Urine WBC (Auto) (0-5) /HPF Urine RBC (Auto) (0-2) /HPF U Epithel Cells (Auto) (FEW) /HPF Urine Bacteria (Auto) (NEGATIVE) /HPF Urine RBC (0-5) Jim/ul Unidentified Crystals (NEGATIVE) /HPF Urine Mucus (Auto) (NEGATIVE) /HPF Ur Culture Indicated? Urine Glucose (NEGATIVE) mg/dL Influenza Type A Ag NEGATIVE (NEGATIVE) Influenza Type B Ag NEGATIVE (NEGATIVE) RSV (PCR) NEGATIVE (Negative) SARS-CoV-2 (PCR) NEGATIVE (NEGATIVE) 03/18/22 03/18/22 03/18/22 Range/Units 17:13 16:15 16:15 WBC (4.0-10.5) x10^3/uL RBC (4.1-5.4) x10^6/uL Hgb (12.0-16.0) g/dL Hct (35-47) % MCV (78-100) fL MCH (26-32) pg MCHC (32-36) g/dL RDW (11.5-14.0) % Plt Count (150-450) x10^3/uL MPV (7.5-11.0) fL Gran % (36.0-66.0) % Immature Gran % (Auto) (0.00-0.4) % Nucleat RBC Rel Count (0.00-0.1) % Eos # (Auto) (0-0.5) x10^3/uL Immature Gran # (Auto) (0.00-0.03) x10^3u/L Absolute Lymphs (auto) (1.0-4.6) x10^3/uL Absolute Monos (auto) (0.0-1.3) x10^3/uL Absolute Nucleated RBC (0.00-0.01) x10^3u/L Lymphocytes % (24.0-44.0) % Monocytes % (0.0-12.0) % Eosinophils % (0.00-5.0) % Basophils % (0.0-0.4) % Absolute Granulocytes (1.4-6.9) x10^3/uL Basophils # (0-0.4) x10^3/uL Sodium (137-145) mmol/L Potassium (3.5-5.1) mmol/L Chloride (98-107) mmol/L Carbon Dioxide (22-30) mmol/L Anion Gap (5-15) MEQ/L BUN (7-17) mg/dL Creatinine (0.52-1.04) mg/dL Estimated GFR ML/MIN Glucose (74-106) mg/dL Lactic Acid (0.4-2.0) Calcium (8.4-10.2) mg/dL Total Bilirubin (0.2-1.3) mg/dL AST (14-36) U/L ALT (0-35) U/L Alkaline Phosphatase (38-126) U/L Troponin I < 0.012 (0.000-0.034) ng/mL NT-Pro-B Natriuret Pep (0-900) pg/mL Serum Total Protein (6.3-8.2) g/dL Albumin (3.5-5.0) g/dL Amylase (30-110) U/L Lipase (23-300) U/L Serum , Qual NEGATIVE (Negative) Urinalys Dipstick Clnc MAIN LAB Urine Color YELLOW (YELLOW) Urine Appearance CLOUDY (CLEAR) Urine pH 5.0 (5-6) Ur Specific [place] 1.025 (1.005-1.025) POC Urine Protein Conf NEGATIVE (Negative) Urine Ketones NEGATIVE (NEGATIVE) Urine Nitrite NEGATIVE (NEGATIVE) Urine Bilirubin NEGATIVE (NEGATIVE) Urine Urobilinogen 0.2 (0-1) mg/dL Urine Leukocytes NEGATIVE (NEGATIVE) Urine WBC (Auto) 11-15 (0-5) /HPF Urine RBC (Auto) 3-5 (0-2) /HPF U Epithel Cells (Auto) RARE (FEW) /HPF Urine Bacteria (Auto) PACKED (NEGATIVE) /HPF Urine RBC TRACE-INTACT (0-5) Jim/ul Unidentified Crystals 2-5 (NEGATIVE) /HPF Urine Mucus (Auto) SLIGHT (NEGATIVE) /HPF Ur Culture Indicated? YES Urine Glucose NEGATIVE (NEGATIVE) mg/dL Influenza Type A Ag (NEGATIVE) Influenza Type B Ag (NEGATIVE) RSV (PCR) (Negative) SARS-CoV-2 (PCR) (NEGATIVE) 03/18/22 03/18/22 03/18/22 Range/Units 16:15 16:15 16:15 WBC (4.0-10.5) x10^3/uL RBC (4.1-5.4) x10^6/uL Hgb (12.0-16.0) g/dL Hct (35-47) % MCV (78-100) fL MCH (26-32) pg MCHC (32-36) g/dL RDW (11.5-14.0) % Plt Count (150-450) x10^3/uL MPV (7.5-11.0) fL Gran % (36.0-66.0) % Immature Gran % (Auto) (0.00-0.4) % Nucleat RBC Rel Count (0.00-0.1) % Eos # (Auto) (0-0.5) x10^3/uL Immature Gran # (Auto) (0.00-0.03) x10^3u/L Absolute Lymphs (auto) (1.0-4.6) x10^3/uL Absolute Monos (auto) (0.0-1.3) x10^3/uL Absolute Nucleated RBC (0.00-0.01) x10^3u/L Lymphocytes % (24.0-44.0) % Monocytes % (0.0-12.0) % Eosinophils % (0.00-5.0) % Basophils % (0.0-0.4) % Absolute Granulocytes (1.4-6.9) x10^3/uL Basophils # (0-0.4) x10^3/uL Sodium 139 (137-145) mmol/L Potassium 4.0 (3.5-5.1) mmol/L Chloride 104 (98-107) mmol/L Carbon Dioxide 25 (22-30) mmol/L Anion Gap 14.0 (5-15) MEQ/L BUN 9 (7-17) mg/dL Creatinine 0.76 (0.52-1.04) mg/dL Estimated GFR > 60.0 ML/MIN Glucose 96 (74-106) mg/dL Lactic Acid 2.2 H (0.4-2.0) Calcium 9.2 (8.4-10.2) mg/dL Total Bilirubin 0.30 (0.2-1.3) mg/dL AST 31 (14-36) U/L ALT 24 (0-35) U/L Alkaline Phosphatase 77 (38-126) U/L Troponin I (0.000-0.034) ng/mL NT-Pro-B Natriuret Pep 97.2 (0-900) pg/mL Serum Total Protein 6.8 (6.3-8.2) g/dL Albumin 3.9 (3.5-5.0) g/dL Amylase 64 (30-110) U/L Lipase 107 (23-300) U/L Serum , Qual (Negative) Urinalys Dipstick Clnc Urine Color (YELLOW) Urine Appearance (CLEAR) Urine pH (5-6) Ur Specific [place] (1.005-1.025) POC Urine Protein Conf (Negative) Urine Ketones (NEGATIVE) Urine Nitrite (NEGATIVE) Urine Bilirubin (NEGATIVE) Urine Urobilinogen (0-1) mg/dL Urine Leukocytes (NEGATIVE) Urine WBC (Auto) (0-5) /HPF Urine RBC (Auto) (0-2) /HPF U Epithel Cells (Auto) (FEW) /HPF Urine Bacteria (Auto) (NEGATIVE) /HPF Urine RBC (0-5) Jim/ul Unidentified Crystals (NEGATIVE) /HPF Urine Mucus (Auto) (NEGATIVE) /HPF Ur Culture Indicated? Urine Glucose (NEGATIVE) mg/dL Influenza Type A Ag (NEGATIVE) Influenza Type B Ag (NEGATIVE) RSV (PCR) (Negative) SARS-CoV-2 (PCR) (NEGATIVE) 03/18/22 Range/Units 16:15 WBC 7.5 (4.0-10.5) x10^3/uL RBC 4.86 (4.1-5.4) x10^6/uL Hgb 14.6 (12.0-16.0) g/dL Hct 45.0 (35-47) % MCV 92.6 (78-100) fL MCH 30.0 (26-32) pg MCHC 32.4 (32-36) g/dL RDW 14.4 H (11.5-14.0) % Plt Count 285 (150-450) x10^3/uL MPV 9.3 (7.5-11.0) fL Gran % 57.2 (36.0-66.0) % Immature Gran % (Auto) 0.3 (0.00-0.4) % Nucleat RBC Rel Count 0.0 (0.00-0.1) % Eos # (Auto) 0.25 (0-0.5) x10^3/uL Immature Gran # (Auto) 0.02 (0.00-0.03) x10^3u/L Absolute Lymphs (auto) 2.01 (1.0-4.6) x10^3/uL Absolute Monos (auto) 0.89 (0.0-1.3) x10^3/uL Absolute Nucleated RBC 0.00 (0.00-0.01) x10^3u/L Lymphocytes % 26.8 (24.0-44.0) % Monocytes % 11.9 (0.0-12.0) % Eosinophils % 3.3 (0.00-5.0) % Basophils % 0.5 (0.0-0.4) % Absolute Granulocytes 4.30 (1.4-6.9) x10^3/uL Basophils # 0.04 (0-0.4) x10^3/uL Sodium (137-145) mmol/L Potassium (3.5-5.1) mmol/L Chloride (98-107) mmol/L Carbon Dioxide (22-30) mmol/L Anion Gap (5-15) MEQ/L BUN (7-17) mg/dL Creatinine (0.52-1.04) mg/dL Estimated GFR ML/MIN Glucose (74-106) mg/dL Lactic Acid (0.4-2.0) Calcium (8.4-10.2) mg/dL Total Bilirubin (0.2-1.3) mg/dL AST (14-36) U/L ALT (0-35) U/L Alkaline Phosphatase (38-126) U/L Troponin I (0.000-0.034) ng/mL NT-Pro-B Natriuret Pep (0-900) pg/mL Serum Total Protein (6.3-8.2) g/dL Albumin (3.5-5.0) g/dL Amylase (30-110) U/L Lipase (23-300) U/L Serum , Qual (Negative) Urinalys Dipstick Clnc Urine Color (YELLOW) Urine Appearance (CLEAR) Urine pH (5-6) Ur Specific [place] (1.005-1.025) POC Urine Protein Conf (Negative) Urine Ketones (NEGATIVE) Urine Nitrite (NEGATIVE) Urine Bilirubin (NEGATIVE) Urine Urobilinogen (0-1) mg/dL Urine Leukocytes (NEGATIVE) Urine WBC (Auto) (0-5) /HPF Urine RBC (Auto) (0-2) /HPF U Epithel Cells (Auto) (FEW) /HPF Urine Bacteria (Auto) (NEGATIVE) /HPF Urine RBC (0-5) Jim/ul Unidentified Crystals (NEGATIVE) /HPF Urine Mucus (Auto) (NEGATIVE) /HPF Ur Culture Indicated? Urine Glucose (NEGATIVE) mg/dL Influenza Type A Ag (NEGATIVE) Influenza Type B Ag (NEGATIVE) RSV (PCR) (Negative) SARS-CoV-2 (PCR) (NEGATIVE) - Progress Progress: improved, re-examined Air Movement: good Progress Note: 03/18/22 21:01 pt symptoms have inmproved on Tx here and she prefers to be DC with outpt f/u rather than admit or further w/u in ER. she is aware that there can be additonal serious pathology undetected and has the capacity to make that choice. Blood Culture(s) Obtained: No Antibiotics given: No Counseled pt/family regarding: lab results, diagnosis, need for follow-up, rad results - Departure Departure Disposition: Home Clinical Impression: UTI (urinary tract infection), Chronic asthma with acute exacerbation, GERD symptoms, abdominal pain of unknown etiology, mediastinal lymph nodes Condition: Good Critical Care Time: No Referrals: BENITO DAS [Primary Care Provider] - Follow up/PCP as directed Instructions: Asthma, Adult (DC), Acid Reflux and GERD in Adults (DC), Acute Abdomen (Belly Pain), Adult (DC) Additional Instructions: Followup with your Dr. for the abdominal pain, Asthma, for possible upper endoscopy of esophagus, for lymph glands on the CT in lungs, for urinary tract infection and return meantimne if any concerns or not improving. Prescriptions: Levofloxacin [Levofloxacin 500 MG Tablet] 500 mg PO QAM #10 tablet Methylprednisolone Packet [Medrol Dosepack] 4 mg PO UD #30 packet
[2022-03-18] MEDS ORDERED: Sodium Chloride 0.9% 1000 ML 1,000 ML IV SCH (16:00)
[2022-03-18] MEDS ORDERED: solu-MEDROL 125 MG, Sterile H2O 10 ml 2 ML IV ONE ×2 (16:00)
[2022-03-18] MEDS ORDERED: Pepcid 20 MG VIAL IV ONE ×2 (16:00→16:15)
[2022-03-18] MEDS ORDERED: PROTONIX 40 MG IV IV ONE ×2 (16:00→16:15)
[2022-03-18] MEDS ORDERED: Zofran 4 MG/2 ML VIAL IV ONE (16:00)
[2022-03-18] MEDS ORDERED: Sodium Chloride 0.9% 1000 ML 1,000 ML ONE (16:15)
[2022-03-18] MEDS ORDERED: solu-MEDROL ONE (16:15)
[2022-03-18] MEDS ORDERED: Sterile H2O 10 ml IJ ONE (16:15)
[2022-03-18] MEDS ORDERED: Zofran 4 MG/2 ML VIAL ONE (16:16)
[2022-03-18 16:17] LABS: Basophil (Absolute #) 0.04 x10^3/uL (0-0.4); Eosinophil % 3.3 % (0.00-5.0); Eosinophil (Absolute #) 0.25 x10^3/uL (0-0.5); Hemoglobin 14.6 g/dL (12.0-16.0); Lymphocyte (Absolute #) 2.01 x10^3/uL (1.0-4.6); Lymphocytes % 26.8 % (24.0-44.0); Mean Cell Volume 92.6 fL (78-100); Mean Corpuscular Hgb Concent. 32.4 g/dL (32-36); Mean Platelet Volume 9.3 fL (7.5-11.0); Monocyte (Absolute #) 0.89 x10^3/uL (0.0-1.3); Monocytes % 11.9 % (0.0-12.0); Neutrophil % 57.2 % (36.0-66.0); Platelet Count 285 x10^3/uL (150-450); Red Blood Count 4.86 x10^6/uL (4.1-5.4); Red Cell Distribution Width 14.4 % (11.5-14.0); White Blood Count 7.5 x10^3/uL (4.0-10.5)
[2022-03-18 16:28] LABS: ALBUMIN 3.9 g/dL (3.5-5.0); ALKALINE PHOSPHATASE 77 U/L (38-126); BLOOD UREA NITROGEN 9 mg/dL (7-17); CHLORIDE 104 mmol/L (98-107); Calcium 9.2 mg/dL (8.4-10.2); Carbon Dioxide 25 mmol/L (22-30); Creatinine 1 0.76 mg/dL (0.52-1.04); EST GLOMERULAR FILTRATION RATE > 60.0 ML/MIN; Glucose 96 mg/dL (74-106); SGOT/AST 31 U/L (14-36); SGPT/ALT 24 U/L (0-35); SODIUM 139 mmol/L (137-145); Total Protein 6.8 g/dL (6.3-8.2)
[2022-03-18 16:36] LABS: NT PRO BNP 97.2 pg/mL (0-900)
[2022-03-18 17:13] LABS: Appearance CLOUDY (CLEAR); Bilirubin NEGATIVE (NEGATIVE); Dipstick done @ ? MAIN LAB; Glucose NEGATIVE (NEGATIVE); Ketones NEGATIVE (NEGATIVE); Nitrite NEGATIVE (NEGATIVE); Protein,Urine Dip NEGATIVE (Negative); RBC TRACE-INTACT Ery/ul (0-5); Specific Gravity 1.025 (1.005-1.025); Urobilinogen 0.2 mg/dL (0-1)
[2022-03-18 17:15] LABS: Bacteria PACKED /HPF (NEGATIVE); Epithelial Cells RARE /HPF (FEW); Mucus SLIGHT /HPF (NEGATIVE); Urine Cultured Indicated? YES
[2022-03-18 20:43] LABS: INFLUENZA A NEGATIVE (NEGATIVE); INFLUENZA B NEGATIVE (NEGATIVE); RESPIRATORY SYNCTIAL VIRUS NEGATIVE (Negative); SARS-CoV-2 Xpert Express NEGATIVE (NEGATIVE)
--- NOTE | 2022-03-18 21:15 | XRAY ---
Indication: Coffee-ground emesis. Multiple contiguous axial images obtained through the chest without contrast. Comparison: June 03, 2021. Lungs again demonstrates mild pulmonary emphysema and mild biapical subpleural cystic changes. No suspicious pulmonary mass, infiltrate, effusion, or pneumothorax. Heart not enlarged. Aorta is normal in course and caliber again a few prominent mediastinal lymph nodes, largest precarinal measuring 1.2 x 1.7 cm, previously 0.9 x 1.5 cm. No pneumomediastinum. Bony thorax intact again with mild degenerative changes throughout the spine. No pathologic axillary lymphadenopathy. CT abdomen/pelvis reported separately. Impression: 1. New nonspecific prominent mediastinal lymph nodes. 2. Again pulmonary emphysema with biapical subpleural cystic changes. 3. Remaining CT chest without contrast exam is negative. Comment: Preliminary interpretation made by C. No critical discrepancy.
[2022-03-18 21:17] VITALS: BP 113/71; PULSE 86; O2SAT 95
--- NOTE | 2022-03-18 21:17 | XRAY ---
Indication: Cough and short of breath. History COPD and asthma. Comparison: March 05, 2022. Portable apical lordotic chest remains clear. Heart not enlarged. No new/acute findings.
--- NOTE | 2022-03-18 21:19 | XRAY ---
Indication: Coffee-ground emesis. Multiple contiguous axial images obtained through the abdomen and pelvis without contrast. Comparison: June 19, 2014. CT chest reported separately. Noncontrasted stomach and bowel loops nonobstructed again with normal appendix. Again cholecystectomy and hysterectomy. No free fluid/air. Remaining liver, pancreas, spleen, adrenal glands, kidneys, ureters, bladder, and aorta are unremarkable for noncontrast exam. Osseous structures intact again with mild degenerative changes of the spine. No ventral or inguinal hernias. Impression: Continued negative CT abdomen/pelvis without contrast exam. Comment: Preliminary interpretation made by [facility]. No critical discrepancy.
== END 2022-03-18 21:28 | disposition home or self-care (01) ==
LOC: ED 15:30
DX: J45.901 Unspecified asthma with (acute) exacerbation (principal); N39.0 Urinary tract infection, site not specified; K21.9 Gastro-esophageal reflux disease without esophagitis; R10.9 Unspecified abdominal pain; R59.0 Localized enlarged lymph nodes; Z72.0 Tobacco use; Z79.899 Other long term (current) drug therapy; Z79.52 Long term (current) use of systemic steroids
CPT/HCPCS: 0241U; 36000; 36415; 71045; 71250; 74176; 80053; 81015; 81025; 82150; 83605; 83690; 83880; 84484; 85025; 87086; 93005; 93041; 94640; 94760; 96374; 96375; 99284; J2405; J2930; J7609; A9270-GY

== ENCOUNTER 2022-03-20 16:12 | Emergency (ER) | payer OTHER ==
--- NOTE | 2022-03-20 16:41 | ERPHSYRPT ---
- History of Present Illness Time Seen by Provider: 03/20/22 16:35 Historian: patient Exam Limitations: no limitations Patient Subjective Stated Complaint: Pt states "My belly has been hurting and I was supposed to go to the [facility] this morning and I just couldn't make it. I called Dr. watters and she told me to just come here." Triage Nursing Assessment: Pt presented alert and oriented X 3, skin pwd. Pt in no apparent respiratroy distres. Pt ambulates with an upright steady gait, able to speak in clear full setences. Physician History: This is a morbidly obese 51-year-old white female patient of Dr. Vikki Das and complains of left lower quadrant abdominal pain that has been sudden in onset in the last 2 days and is severe. Patient was seen in this emergency department on 03/18/2022 with complaints of abdominal pain and had a work-up including a CAT scan of abdomen pelvis with showed a normal appendix, and umbilical hernia but no acute emergent process. Patient was scheduled for some type of ultrasound earlier today but she could not attend that appointment because of the left lower quadrant pain that she is experiencing at this time. Patient has a history of hypertension, angina, arrhythmia, coronary artery disease, COPD, pancreatitis, and endometriosis. Patient currently has no shortn ess of breath and no chest pain. She has had a section and hysterectomy as well as a cholecystectomy. Timing/Duration: day(s) (2) Activities at Onset: none Quality: sharpness, stabbing Abdominal Pain Onset Location: LLQ Pain Radiation: no radiation Severity of Pain-Max: moderate Severity of Pain-Current: moderate Modifying Factors: Improves With: nothing Associated Symptoms: denies symptoms Previous symptoms: same symptoms as today, recently seen, recently treated Allergies/Adverse Reactions: diphenhydramine HCl [From Benadryl] Allergy (Intermediate, Verified 03/18/22 15:46) Hives hydrocodone bitartrate [From Lortab] Allergy (Mild, Verified 03/18/22 15:46) Poultry Allergy (Mild, Verified 03/18/22 15:46) Hives acetaminophen [From Darvocet-N 100] Allergy (Unknown, Verified 03/18/22 15:46) benzonatate [From Tessalon Perles] Allergy (Unknown, Verified 03/18/22 15:46) codeine [Codeine] Allergy (Unknown, Verified 03/18/22 15:46) ibuprofen Allergy (Unknown, Verified 03/18/22 15:46) promethazine HCl [From Phenergan] Allergy (Unknown, Verified 03/18/22 15:46) propoxyphene napsylate [From Darvocet-N 100] Allergy (Unknown, Verified 03/18/22 15:46) sumatriptan [From Imitrex] Allergy (Unknown, Verified 03/18/22 15:46) sumatriptan succinate [From Imitrex] Allergy (Unknown, Verified 03/18/22 15:46) azithromycin Allergy (Verified 03/18/22 15:46) fluticasone [From Wixela Inhub] Allergy (Verified 03/18/22 15:46) influenza virus vaccine, specific [Influenza Virus Vacc,Specific] Allergy (Verified 03/18/22 15:46) ketorolac tromethamine [From Toradol] Allergy (Verified 03/18/22 15:46) Hives milk Allergy (Verified 03/18/22 15:46) Penicillins Allergy (Verified 03/18/22 15:46) pneumococcal vaccine [Pneumococcal Vaccine] Allergy (Verified 03/18/22 15:46) salmeterol [From Wixela Inhub] Allergy (Verified 03/18/22 15:46) Tetanus Vaccines and Toxoid [Tetanus Vaccines & Toxoid] Allergy (Verified 03/18/22 15:46) tramadol Allergy (Verified 03/18/22 15:46) EGGS Allergy (Mild, Uncoded 03/18/22 15:46) RASH Home Medications: Aspirin [Aspir-Low] 81 mg PO DAILY 10/29/17 [History] Albuterol 8 gm Mdi Hfa [Ventolin Hfa MDI] 2 inhaler IN Q6H PRN PRN 04/22/21 [History] Escitalopram Oxalate [Lexapro 10 MG] 10 mg PO DAILY 04/22/21 [History] Fluticasone Propion/Salmeterol [Wixela 250-50 Inhub] 1 inhaler IH DAILY 04/22/21 [History] Furosemide 20 mg [Lasix 20 mg] 20 mg PO DAILY PRN 04/22/21 [History] Isosorbide Mononitrate 30 mg [Imdur 30 MG] 30 mg PO DAILY 04/22/21 [History] Metoprolol Succinate [Toprol Xl] 25 mg PO DAILY 04/22/21 [History] lisinopriL [Lisinopril] 2.5 mg PO DAILY 04/22/21 [History] Hx Tetanus, Diphtheria Vaccination/Date Given: No Hx Influenza Vaccination/Date Given: No Hx Pneumococcal Vaccination/Date Given: No Immunizations Up to Date: Yes Travel Risk - International Travel Have you traveled outside of the country in past 3 weeks: No - Coronavirus Screening Are you exhibiting any of the following symptoms?: No Close contact with a COVID-19 positive Pt in past 14-21 Days: No - Vaccine Status Have you recieved a Covid-19 vaccination: Yes 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: [employer] - Vaccination Dates Date of 2cond Vaccination (if applicable): unknown - Review of Systems Constitutional: No Symptoms Eyes: No Symptoms Ears, Nose, & Throat: No Symptoms Respiratory: No Symptoms Cardiac: No Symptoms Abdominal/Gastrointestinal: Abdominal Pain Genitourinary Symptoms: No Symptoms (Left lower quadrant) Musculoskeletal: No Symptoms Skin: No Symptoms Neurological: No Symptoms Psychological: No Symptoms Endocrine: No Symptoms Hematologic/Lymphatic: No Symptoms Immunological/Allergic: No Symptoms All Other Systems: Reviewed and Negative - Past Medical History Pertinent Past Medical History: Yes Neurological History: Seizures, TIA ENT History: No Pertinent History Cardiac History: Angina, Arrhythmia, Myocardial Infarction (DC) Respiratory History: Asthma, Bronchitis, COPD, Pneumonia, Other Endocrine Medical History: No Pertinent History Musculoskeletal History: Other GI Medical History: No Pertinent History, Pancreatitis History: No Pertinent History Psycho-Social History: Depression Female Reproductive Disorders: Endometriosis Other Medical History: disc in back,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,lupus - Past Surgical History Past Surgical History: Yes Neuro Surgical History: Neurological Surgery, Other Cardiac: Cardiac Catheterization Respiratory: No Pertinent History Gastrointestinal: Cholecystectomy Genitourinary: No Pertinent History Musculoskeletal: Orthopedic Surgery Female Surgical History: Section, Hysterectomy Other Surgical History: brain stem surgery, t & a, laser surgery on cyst on back of neck - Social History Smoking Status: Current every day smoker How long have you smoked: 22 years Exposure to second hand smoke: Yes Drug Use: none Patient Lives Alone: Yes Significant Family History: no pertinent family hx - Nursing Vital Signs Nursing Vital Signs: Initial Vital Signs Temperature 97.8 F 03/20/22 16:19 Pulse Rate 107 H 03/20/22 16:19 Respiratory Rate 24 03/20/22 16:19 Blood Pressure 146/106 03/20/22 16:19 O2 Sat by Pulse Oximetry 95 03/20/22 16:19 Pain Scale Pain Intensity 5 - Physical Exam General Appearance: no apparent distress, alert, anxiety, obese Eye Exam: PERRL/EOMI, eyes nml inspection Ears, Nose, Throat Exam: normal ENT inspection, moist mucous membranes Neck Exam: normal inspection, non-tender, supple, full range of motion Respiratory Exam: normal breath sounds, lungs clear, airway intact, No chest tenderness, No respiratory distress Cardiovascular Exam: tachycardia Gastrointestinal/Abdomen Exam: soft, normal bowel sounds, tenderness, guarding (Lower quadrant left lower quadrant), No rebound Pelvic Exam: not done Rectal Exam: not done Back Exam: normal inspection, normal range of motion, No CVA tenderness, No vertebral tenderness Extremity Exam: normal inspection, normal range of motion, pelvis stable Neurologic Exam: alert, 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, 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, 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, normal mood/affect, nml cerebellar function, nml station & gait, sensation nml Skin Exam: normal color, warm, dry Lymphatic Exam: No adenopathy SpO2 Interpretation: normal SpO2: 95 O2 Delivery: Room Air - Course Nursing assessment & vital signs reviewed: Yes Ordered Tests: Active Orders 24 hr Category Date Time Status ABDOMEN AND PELVIS W/0 CONTRAS [CT] Stat Exams 03/20/22 17:05 Taken AMYLASE Stat Lab 03/20/22 16:30 Completed CBC W DIFF Stat Lab 03/20/22 16:30 Completed CMP Stat Lab 03/20/22 16:30 Completed LIPASE Stat Lab 03/20/22 16:30 Completed UA W/RFX CULTURE Stat Lab 03/20/22 17:30 Completed Medication Summary Discontinued Medications Generic Name Dose Route Start Last Admin Trade Name Freq PRN Reason Stop Dose Admin Sodium Chloride 1,000 mls @ 999 mls/hr 03/20/22 17:05 03/20/22 18:25 Sodium Chloride 0.9% 1000 Ml IV 03/20/22 18:05 Infused .Q1H1M STA Infusion Sodium Chloride Confirm 03/20/22 17:14 Sodium Chloride 0.9% 1000 Ml Administered 03/20/22 17:15 Dose 1,000 mls @ .[facility] Lab/Rad Data: Laboratory Result Diagrams 03/20/22 16:30 03/20/22 16:30 Laboratory Results 03/20/22 03/20/22 03/20/22 Range/Units 17:30 16:30 16:30 WBC 10.8 H (4.0-10.5) x10^3/uL RBC 4.50 (4.1-5.4) x10^6/uL Hgb 13.6 (12.0-16.0) g/dL Hct 40.9 (35-47) % MCV 90.9 (78-100) fL MCH 30.2 (26-32) pg MCHC 33.3 (32-36) g/dL RDW 14.6 H (11.5-14.0) % Plt Count 291 (150-450) x10^3/uL MPV 9.6 (7.5-11.0) fL Gran % 55.6 (36.0-66.0) % Immature Gran % (Auto) 0.3 (0.00-0.4) % Nucleat RBC Rel Count 0.0 (0.00-0.1) % Eos # (Auto) 0.14 (0-0.5) x10^3/uL Immature Gran # (Auto) 0.03 (0.00-0.03) x10^3u/L Absolute Lymphs (auto) 3.78 (1.0-4.6) x10^3/uL Absolute Monos (auto) 0.79 (0.0-1.3) x10^3/uL Absolute Nucleated RBC 0.00 (0.00-0.01) x10^3u/L Lymphocytes % 35.1 (24.0-44.0) % Monocytes % 7.3 (0.0-12.0) % Eosinophils % 1.3 (0.00-5.0) % Basophils % 0.4 (0.0-0.4) % Absolute Granulocytes 5.98 (1.4-6.9) x10^3/uL Basophils # 0.04 (0-0.4) x10^3/uL Sodium 138 (137-145) mmol/L Potassium 3.8 (3.5-5.1) mmol/L Chloride 101 (98-107) mmol/L Carbon Dioxide 30 (22-30) mmol/L Anion Gap 10.6 (5-15) MEQ/L BUN 21 H (7-17) mg/dL Creatinine 0.98 (0.52-1.04) mg/dL Estimated GFR > 60.0 ML/MIN Glucose 98 (74-106) mg/dL Calcium 8.8 (8.4-10.2) mg/dL Total Bilirubin 0.30 (0.2-1.3) mg/dL AST 22 (14-36) U/L ALT 18 (0-35) U/L Alkaline Phosphatase 65 (38-126) U/L Serum Total Protein 6.3 (6.3-8.2) g/dL Albumin 3.5 (3.5-5.0) g/dL Amylase 58 (30-110) U/L Lipase 81 (23-300) U/L Urinalys Dipstick Clnc MAIN LAB Urine Color YELLOW (YELLOW) Urine Appearance CLEAR (CLEAR) Urine pH 5.0 (5-6) Ur Specific Seney >=1.030 (1.005-1.025) POC Urine Protein Conf NEGATIVE (Negative) Urine Ketones NEGATIVE (NEGATIVE) Urine Nitrite NEGATIVE (NEGATIVE) Urine Bilirubin NEGATIVE (NEGATIVE) Urine Urobilinogen 0.2 (0-1) mg/dL Urine Leukocytes NEGATIVE (NEGATIVE) Urine WBC (Auto) 0-2 (0-5) /HPF Urine RBC (Auto) 0-2 (0-2) /HPF U Epithel Cells (Auto) RARE (FEW) /HPF Urine Bacteria (Auto) RARE (NEGATIVE) /HPF Urine RBC NEGATIVE (0-5) Jim/ul Urine Mucus (Auto) SLIGHT (NEGATIVE) /HPF Ur Culture Indicated? NO Urine Glucose NEGATIVE (NEGATIVE) mg/dL - Progress Progress: improved, pain not gone completely, re-examined Progress Note: 03/20/22 18:45 CAT scan of the abdomen and pelvis without contrast shows no acute intra- abdominal or intrapelvic findings. Counseled pt/family regarding: lab results, diagnosis, need for follow-up, rad results - Departure Departure Disposition: Home Clinical Impression: Left lower quadrant abdominal pain Condition: Stable Critical Care Time: No Referrals: BENITO DAS [Primary Care Provider] - Follow up/PCP as directed Additional Instructions: Take all your medication as prescribed. Follow-up with your primary prescribing physician for further management.
[2022-03-20] MEDS ORDERED: Sodium Chloride 0.9% 1000 ML 1,000 ML IV STA (17:05)
[2022-03-20] MEDS ORDERED: Sodium Chloride 0.9% 1000 ML 1,000 ML ONE (17:14)
[2022-03-20 17:20] LABS: Absolute Neutrophil Ct (ANC) 5.98 x10^3/uL (1.4-6.9); Basophil (Absolute #) 0.04 x10^3/uL (0-0.4); Eosinophil % 1.3 % (0.00-5.0); Eosinophil (Absolute #) 0.14 x10^3/uL (0-0.5); Hematocrit 40.9 % (35-47); Hemoglobin 13.6 g/dL (12.0-16.0); Lymphocyte (Absolute #) 3.78 x10^3/uL (1.0-4.6); Lymphocytes % 35.1 % (24.0-44.0); Mean Cell Volume 90.9 fL (78-100); Mean Corpuscular Hemoglobin 30.2 pg (26-32); Mean Corpuscular Hgb Concent. 33.3 g/dL (32-36); Mean Platelet Volume 9.6 fL (7.5-11.0); Monocyte (Absolute #) 0.79 x10^3/uL (0.0-1.3); Monocytes % 7.3 % (0.0-12.0); Neutrophil % 55.6 % (36.0-66.0); Platelet Count 291 x10^3/uL (150-450); Red Cell Distribution Width 14.6 % (11.5-14.0); White Blood Count 10.8 x10^3/uL (4.0-10.5)
[2022-03-20 17:27] LABS: ALBUMIN 3.5 g/dL (3.5-5.0); ALKALINE PHOSPHATASE 65 U/L (38-126); AMYLASE 58 U/L (30-110); ANION GAP 10.6 MEQ/L (5-15); BLOOD UREA NITROGEN 21 mg/dL (7-17); CHLORIDE 101 mmol/L (98-107); Calcium 8.8 mg/dL (8.4-10.2); Carbon Dioxide 30 mmol/L (22-30); Creatinine 1 0.98 mg/dL (0.52-1.04); EST GLOMERULAR FILTRATION RATE > 60.0 ML/MIN; Glucose 98 mg/dL (74-106); LIPASE 81 U/L (23-300); Potassium 3.8 mmol/L (3.5-5.1); SGOT/AST 22 U/L (14-36); SGPT/ALT 18 U/L (0-35); SODIUM 138 mmol/L (137-145); Total Protein 6.3 g/dL (6.3-8.2)
[2022-03-20 17:35] LABS: Bacteria RARE /HPF (NEGATIVE); Epithelial Cells RARE /HPF (FEW); Mucus SLIGHT /HPF (NEGATIVE); RBC 0-2 /HPF (0-2); WBC 0-2 /HPF (0-5)
[2022-03-20 17:41] LABS: Appearance CLEAR (CLEAR); Bilirubin NEGATIVE (NEGATIVE); Glucose NEGATIVE (NEGATIVE); Ketones NEGATIVE (NEGATIVE); Nitrite NEGATIVE (NEGATIVE); Protein,Urine Dip NEGATIVE (Negative); RBC NEGATIVE Ery/ul (0-5); Specific Gravity >=1.030 (1.005-1.025); Urine Cultured Indicated? NO; Urobilinogen 0.2 mg/dL (0-1)
[2022-03-20 17:42] LABS: Dipstick done @ ? MAIN LAB
[2022-03-20 19:26] VITALS: BP 132/87; PULSE 92; O2SAT 97
--- NOTE | 2022-03-21 08:51 | XRAY ---
Indication: Left lower quadrant pain with nausea. Multiple contiguous axial images obtained through the abdomen and pelvis without contrast. Comparison: March 18, 2022. Lung bases clear. Heart not enlarged. Noncontrasted stomach and bowel loops remain nonobstructed again with normal appendix. Again cholecystectomy and hysterectomy. No free fluid/air. Stable 1 cm mid pelvic calcified granuloma. Remaining liver, pancreas, spleen, adrenal glands, kidneys, ureters, bladder, and aorta are unremarkable for noncontrast exam. Impression: Continued negative CT abdomen/pelvis without contrast exam.
== END 2022-03-20 19:27 | disposition home or self-care (01) ==
LOC: ED 16:12
DX: R10.32 Left lower quadrant pain (principal); I10 Essential (primary) hypertension; J44.9 Chronic obstructive pulmonary disease, unspecified; Z72.0 Tobacco use; Z79.899 Other long term (current) drug therapy
CPT/HCPCS: 36000; 36415; 74176; 80053; 81015; 82150; 83690; 85025; 96360; 99284

== ENCOUNTER 2023-02-06 09:52 | Day surgery (SDC) | payer OTHER ==
[2013-07-22 15:44] VITALS: BP 140/72
[2023-02-06] MEDS ORDERED: Depo-Medrol 40 MG/ML IM ONE (09:53)
[2023-02-06] MEDS ORDERED: BUPIVACAINE 0.5% VIAL IJ ONE (09:53)
[2023-02-06] MEDS ORDERED: DIPRIVAN 200 MG/20 ML IV ONE (11:39)
[2023-02-06] MEDS ORDERED: Lactated Ringers 1,000 ML IV ONE (12:46)
--- NOTE | 2023-02-06 12:59 | XRAY ---
Indication: Bilateral SI joint injection. Intraoperative fluoroscopy provided 20 seconds. 4 digital spot image submitted for interpretation demonstrates posterior needle tip projecting over the left and right SI joint. Correlate with intraoperative findings/report.
--- NOTE | 2023-02-06 15:12 | XRAY ---
20 seconds of fluoroscopy was used in surgery for a bilateral sacroiliac joint injection.
== END 2023-02-06 12:06 | disposition home or self-care (01) ==
LOC: SDC-PAIN 09:52
PROVIDERS: ATTEND Psychiatry & Neurology Pain Medicine
DX: M46.1 Sacroiliitis, not elsewhere classified (principal); E11.9 Type 2 diabetes mellitus without complications; Z79.899 Other long term (current) drug therapy
CPT/HCPCS: 01992; 27096; 72202; 77002; 82947; G0260; J1030; J2704

== ENCOUNTER 2023-03-06 09:31 | Day surgery (SDC) | payer OTHER ==
[2013-07-22 15:44] VITALS: BP 140/72
[2023-03-06] MEDS ORDERED: Depo-Medrol 40 MG/ML IM ONE (09:32)
[2023-03-06] MEDS ORDERED: BUPIVACAINE 0.5% VIAL IJ ONE (09:32)
[2023-03-06] MEDS ORDERED: DIPRIVAN 200 MG/20 ML IV ONE ×2 (10:40→10:53)
--- NOTE | 2023-03-06 13:54 | XRAY ---
Indication: Bilateral hip and bilateral greater trochanter bursa injection. Intraoperative fluoroscopy provided for 1 minute 1 second. 5 digital spot image submitted for interpretation demonstrates needle tips projecting lateral to the left/right femur necks and lateral to the left/right greater trochanters. Small amount of contrast injected for all needle tip placement. Correlate with intraoperative findings/report.
[2023-03-06] MEDS ORDERED: Lactated Ringers 1,000 ML IV ONE (14:11)
--- NOTE | 2023-03-06 15:55 | XRAY ---
One minute and 1 second of fluoroscopy was used in surgery for a bilateral intra-articular hip and greater trochanteric bursa injection.
== END 2023-03-06 10:56 | disposition home or self-care (01) ==
LOC: SDC-PAIN 09:31
PROVIDERS: ATTEND Psychiatry & Neurology Pain Medicine
DX: M16.0 Bilateral primary osteoarthritis of hip (principal); M70.62 Trochanteric bursitis, left hip; M70.61 Trochanteric bursitis, right hip; E11.9 Type 2 diabetes mellitus without complications; Z79.899 Other long term (current) drug therapy
CPT/HCPCS: 20610; 73522; 77002; 82947; J1030; J2704; Q9966

== ENCOUNTER 2023-05-16 07:40 | Day surgery (SDC) | payer OTHER ==
[2013-07-22 15:44] VITALS: BP 140/72
[2023-05-16] MEDS ORDERED: LIDOCAINE HCL 2% 100 MG/5 ML IJ ONE (07:41)
[2023-05-16] MEDS ORDERED: DIPRIVAN 200 MG/20 ML IV ONE ×2 (09:17→09:26)
--- NOTE | 2023-05-16 10:22 | XRAY ---
Indication: Bilateral L4-S1 MBB. Intraoperative fluoroscopy provided for 17 seconds. Single digital spot image submitted for interpretation demonstrates posterior needle tips projecting over the expected left and right L4-S1 nerve roots. Correlate with intraoperative findings/report.
--- NOTE | 2023-05-16 10:30 | XRAY ---
17 seconds of fluoroscopy was used in surgery for a bilateral L4-S1 MBB.
[2023-05-16] MEDS ORDERED: Lactated Ringers 1,000 ML IV ONE (11:41)
== END 2023-05-16 09:46 | disposition home or self-care (01) ==
LOC: SDC-PAIN 07:40
PROVIDERS: ATTEND Psychiatry & Neurology Pain Medicine
DX: M47.816 Spondylosis without myelopathy or radiculopathy, lumbar region (principal); E11.9 Type 2 diabetes mellitus without complications; Z79.899 Other long term (current) drug therapy
CPT/HCPCS: 64493; 64494; 72020; 77002; 82947; J2704

== ENCOUNTER 2023-08-07 07:26 | Day surgery (SDC) | payer OTHER ==
[2013-07-22 15:44] VITALS: BP 140/72
[2023-08-07] MEDS ORDERED: LIDOCAINE HCL 1% 50 MG/5 ML VL PF IJ ONE (07:27)
[2023-08-07] MEDS ORDERED: BUPIVACAINE 0.5% VIAL IJ ONE (07:27)
[2023-08-07] MEDS ORDERED: Depo-Medrol 40 MG/ML IM ONE (07:27)
[2023-08-07] MEDS ORDERED: DIPRIVAN 200 MG/20 ML IV ONE ×2 (08:55→09:04)
--- NOTE | 2023-08-07 13:54 | XRAY ---
39 seconds of fluoroscopy was used in surgery for a right L4-S1 RFA.
--- NOTE | 2023-08-07 13:54 | XRAY ---
Indication: Right L4-S1 RFA. Intraoperative fluoroscopy provided for 39 seconds. 3 digital spot image submitted for interpretation demonstrates posterior needle tips projecting over the expected right L4-S1 nerve roots. Correlate with intraoperative findings/report.
[2023-08-07] MEDS ORDERED: Lactated Ringers 1,000 ML IV ONE (14:57)
== END 2023-08-07 09:30 | disposition home or self-care (01) ==
LOC: SDC-PAIN 07:26
PROVIDERS: ATTEND Psychiatry & Neurology Pain Medicine
DX: M47.816 Spondylosis without myelopathy or radiculopathy, lumbar region (principal); E11.9 Type 2 diabetes mellitus without complications; Z79.899 Other long term (current) drug therapy
CPT/HCPCS: 64635; 64636; 72100; 77002; 82947; J1030; J2001; J2704

== ENCOUNTER 2023-08-08 08:29 | Day surgery (SDC) | payer OTHER ==
[2013-07-22 15:44] VITALS: BP 140/72
[2023-08-08] MEDS ORDERED: BUPIVACAINE 0.5% VIAL IJ ONE (08:30)
[2023-08-08] MEDS ORDERED: XYLOCAINE 1% HCL 20 ML MDV IJ ONE (08:30)
[2023-08-08] MEDS ORDERED: Depo-Medrol 40 MG/ML IM ONE (08:30)
[2023-08-08] MEDS ORDERED: DIPRIVAN 200 MG/20 ML IV ONE (10:55)
[2023-08-08] MEDS ORDERED: SUBLIMAZE 100 MCG/2 ML ONE (11:04)
[2023-08-08] MEDS ORDERED: Lactated Ringers 1,000 ML IV ONE (11:08)
--- NOTE | 2023-08-08 12:26 | XRAY ---
Indication: Left L4-S1 RFA. Intraoperative fluoroscopy provided for 33 seconds. 5 digital spot image submitted for interpretation demonstrates posterior needle tips projecting over the expected left L4-S1 nerve roots. Correlate with intraoperative findings/report.
--- NOTE | 2023-08-08 12:33 | XRAY ---
33 seconds of fluoroscopy was used in surgery for a left L4-S1 RFA.
== END 2023-08-08 11:26 | disposition home or self-care (01) ==
LOC: SDC-PAIN 08:29
PROVIDERS: ATTEND Psychiatry & Neurology Pain Medicine
DX: M47.816 Spondylosis without myelopathy or radiculopathy, lumbar region (principal); E11.9 Type 2 diabetes mellitus without complications
CPT/HCPCS: 64635; 64636; 72100; 77002; 82947; J1030; J2704; J3010

== ENCOUNTER 2023-11-06 14:07 | Day surgery (SDC) | payer OTHER ==
[2013-07-22 15:44] VITALS: BP 140/72
[2023-11-06] MEDS ORDERED: Sodium Chloride 0.9(Preservative Free) 10 ML IJ ONE (14:08)
[2023-11-06] MEDS ORDERED: XYLOCAINE-MPF 1% 5ML SDV IJ ONE (14:08)
[2023-11-06] MEDS ORDERED: Decadron 4 MG INJ IV ONE (14:08)
[2023-11-06] MEDS ORDERED: Lactated Ringers 1,000 ML IV ONE (17:20)
--- NOTE | 2023-11-06 20:07 | XRAY ---
Indication: Cervical NIKI. Intraoperative fluoroscopy provided for 37 seconds. 3 digital spot image submitted for interpretation demonstrates posterior needle tip projecting posterior to cervical thoracic junction. Small amount of contrast injected for needle tip placement. Correlate with intraoperative findings/report.
--- NOTE | 2023-11-07 09:14 | XRAY ---
37 seconds of fluoroscopy was used in surgery for a cervical NIKI.
== END 2023-11-06 18:19 | disposition home or self-care (01) ==
LOC: SDC-PAIN 14:07
PROVIDERS: ATTEND Psychiatry & Neurology Pain Medicine
DX: M54.12 Radiculopathy, cervical region (principal); E11.9 Type 2 diabetes mellitus without complications; Z79.899 Other long term (current) drug therapy
CPT/HCPCS: 62321; 72040; 77003; 82947; J1100; Q9966

== ENCOUNTER 2024-02-19 08:11 | Day surgery (SDC) | payer MEDICARE ==
[2013-07-22 15:44] VITALS: BP 140/72
[2024-02-19] MEDS ORDERED: Xylocaine-Mpf 2% 5 Ml Vial IJ ONE (08:12)
[2024-02-19] MEDS ORDERED: DIPRIVAN 200 MG/20 ML IV ONE (10:36)
[2024-02-19] MEDS ORDERED: MORPHINE SULFATE 2 MG INJ ONE (10:47)
[2024-02-19] MEDS ORDERED: Lactated Ringers 1,000 ML IV ONE (11:28)
--- NOTE | 2024-02-19 11:45 | XRAY ---
Indication: Right C2-C4 MBB. Intraoperative fluoroscopy provided for 24 seconds. 3 digital spot images submitted for interpretation demonstrates posterior needle tips projecting over expected right C2-C4 nerve roots. Correlate with intraoperative findings/report.
--- NOTE | 2024-02-20 13:54 | XRAY ---
24 seconds of fluoroscopy was used in surgery for a right C2-C4 MBB.
== END 2024-02-19 11:10 | disposition home or self-care (01) ==
LOC: SDC-PAIN 08:11
PROVIDERS: ATTEND Psychiatry & Neurology Pain Medicine
DX: M47.812 Spondylosis without myelopathy or radiculopathy, cervical region (principal); E11.9 Type 2 diabetes mellitus without complications
CPT/HCPCS: 64490; 64491; 72040; 77002; 82947; J2270; J2704

== ENCOUNTER 2024-04-07 15:43 | Emergency (ER) | payer MEDICARE ==
--- NOTE | 2024-04-07 15:56 | ERPHSYRPT ---
- History of Present Illness Time Seen by Provider: 04/07/24 15:56 Source: patient Exam Limitations: no limitations Physician History: 53-year-old female presents to our ED as a referral from her primary care doctor for evaluation of known DVT/PE. Patient has been experiencing worsening pain in her involved right lower extremity. Patient currently on Eliquis. Patient adds that she has been experiencing some shortness of breath. Patient has been experiencing some chest pain with radiation into her arm. No associated nausea vomiting or diaphoresis. Symptoms are constant. Symptoms are moderate in intensity. No specific worsening or improving factors. Patient voices no other complaints or concerns at this time. Patient declined pain due to multiple medicinal allergies Portions of this note were created with voice recognition technology. There may be grammatical, spelling, punctuation or sound alike errors Timing/Duration: today Severity: moderate Modifying Factors: Improves With: nothing Associated Symptoms: denies symptoms Allergies/Adverse Reactions: diphenhydramine HCl [From Benadryl] Allergy (Intermediate, Verified 04/07/24 16:00) Hives hydrocodone bitartrate [From Lortab] Allergy (Mild, Verified 04/07/24 16:00) Poultry Allergy (Mild, Verified 04/07/24 16:00) Hives acetaminophen [From Darvocet-N 100] Allergy (Unknown, Verified 04/07/24 16:00) benzonatate [From Tessalon Perles] Allergy (Unknown, Verified 04/07/24 16:00) codeine [Codeine] Allergy (Unknown, Verified 04/07/24 16:00) ibuprofen Allergy (Unknown, Verified 04/07/24 16:00) promethazine HCl [From Phenergan] Allergy (Unknown, Verified 04/07/24 16:00) propoxyphene napsylate [From Darvocet-N 100] Allergy (Unknown, Verified 04/07/24 16:00) sumatriptan [From Imitrex] Allergy (Unknown, Verified 04/07/24 16:00) sumatriptan succinate [From Imitrex] Allergy (Unknown, Verified 04/07/24 16:00) azithromycin Allergy (Verified 04/07/24 16:00) fluticasone [From Wixela Inhub] Allergy (Verified 04/07/24 16:00) influenza virus vaccine, specific [Influenza Virus Vacc,Specific] Allergy (Verified 04/07/24 16:00) ketorolac tromethamine [From Toradol] Allergy (Verified 04/07/24 16:00) Hives milk Allergy (Verified 04/07/24 16:00) Penicillins Allergy (Verified 04/07/24 16:00) pneumococcal vaccine [Pneumococcal Vaccine] Allergy (Verified 04/07/24 16:00) salmeterol [From Wixela Inhub] Allergy (Verified 04/07/24 16:00) Tetanus Vaccines and Toxoid [Tetanus Vaccines & Toxoid] Allergy (Verified 04/07/24 16:00) tramadol Allergy (Verified 04/07/24 16:00) EGGS Allergy (Mild, Uncoded 04/07/24 16:00) RASH Home Medications: Aspirin [Aspir-Low] 81 mg PO DAILY 10/29/17 [History] Albuterol 8 gm Mdi Hfa [Ventolin Hfa MDI] 2 inhaler IN Q6H PRN PRN 04/22/21 [History] Escitalopram Oxalate [Lexapro 10 MG] 10 mg PO DAILY 04/22/21 [History] Fluticasone Propion/Salmeterol [Wixela 250-50 Inhub] 1 inhaler IH DAILY 04/22/21 [History] Furosemide 20 mg [Lasix 20 mg] 20 mg PO DAILY PRN 04/22/21 [History] Isosorbide Mononitrate 30 mg [Imdur 30 MG] 30 mg PO DAILY 04/22/21 [History ] Metoprolol Succinate [Toprol Xl] 25 mg PO DAILY 04/22/21 [History] lisinopriL [Lisinopril] 2.5 mg PO DAILY 04/22/21 [History] Hx Tetanus, Diphtheria Vaccination/Date Given: No Hx Influenza Vaccination/Date Given: No Hx Pneumococcal Vaccination/Date Given: No - Review of Systems Constitutional: No Symptoms, No Fever, No Chills Eyes: No Symptoms Ears, Nose, & Throat: No Symptoms Respiratory: No Symptoms, No Cough, No Dyspnea Cardiac: No Symptoms, No Chest Pain, No Edema, No Syncope Abdominal/Gastrointestinal: No Symptoms, No Abdominal Pain, No Nausea, No Vomiting, No Diarrhea Genitourinary Symptoms: No Symptoms, No Dysuria Musculoskeletal: No Symptoms, No Back Pain, No Neck Pain Skin: No Symptoms, No Rash Neurological: No Symptoms, No Dizziness, No Focal Weakness, No Sensory Changes Psychological: No Symptoms Endocrine: No Symptoms Hematologic/Lymphatic: No Symptoms Immunological/Allergic: No Symptoms All Other Systems: Reviewed and Negative - Past Medical History Pertinent Past Medical History: Yes Neurological History: Seizures, TIA ENT History: No Pertinent History Cardiac History: Angina, Arrhythmia, Myocardial Infarction (VT) Respiratory History: Asthma, Bronchitis, COPD, Pneumonia, Other Endocrine Medical History: No Pertinent History Musculoskeletal History: Other GI Medical History: No Pertinent History, Pancreatitis History: No Pertinent History Psycho-Social History: Depression Female Reproductive Disorders: Endometriosis Other Medical History: disc in back,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,lupus - Past Surgical History Past Surgical History: Yes Neuro Surgical History: Neurological Surgery, Other Cardiac: Cardiac Catheterization Respiratory: No Pertinent History Gastrointestinal: Cholecystectomy Genitourinary: No Pertinent History Musculoskeletal: Orthopedic Surgery Female Surgical History: Section, Hysterectomy Other Surgical History: brain stem surgery, t & a, laser surgery on cyst on back of neck Significant Family History: no pertinent family hx - Social History Smoking Status: Current every day smoker How long have you smoked: 22 years Exposure to second hand smoke: Yes Drug Use: none Patient Lives Alone: Yes - Nursing Vital Signs Nursing Vital Signs: Initial Vital Signs Pulse Rate 92 H 04/07/24 15:46 Respiratory Rate 24 04/07/24 15:46 Blood Pressure 122/74 04/07/24 15:46 O2 Sat by Pulse Oximetry 97 04/07/24 15:46 Pain Scale Pain Intensity 9 - Physical Exam General Appearance: no apparent distress, alert Eye Exam: PERRL/EOMI, eyes nml inspection Ears, Nose, Throat Exam: normal ENT inspection, TMs normal, pharynx normal, moist mucous membranes Neck Exam: normal inspection, non-tender, supple, full range of motion Respiratory Exam: normal breath sounds, lungs clear, airway intact, No respiratory distress Cardiovascular Exam: regular rate/rhythm, normal heart sounds, normal peripheral pulses Gastrointestinal/Abdomen Exam: soft, normal bowel sounds, No tenderness, No mass Back Exam: normal inspection, normal range of motion, No CVA tenderness, No vertebral tenderness Extremity Exam: normal inspection, normal range of motion, pelvis stable, other (Tenderness to palpation medial aspect right groin) Neurologic Exam: alert, 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, cooperative, normal mood/affect, sensation nml, No motor deficits Skin Exam: normal color, warm, dry, No rash Lymphatic Exam: No adenopathy SpO2 Interpretation: normal SpO2: 98 O2 Delivery: Room Air - Course Nursing assessment & vital signs reviewed: Yes EKG Interpreted by Me: RATE (94), Sinus Rhythm, NORMAL AXIS, NORMAL INTERVALS, NORMAL QRS - CT Exams Chest CT Interpretation: Tele-radiologist Report (Compared to 03/18/2022, negative PE. Stable emphysema and fatty liver. No new acute findings) - Radiology Ultrasound Exam Venous Lower Extremity Ultrasound: tele radiology report (No DVT observed right lower extremity) Ordered Tests: Active Orders 24 hr Category Date Time Status Manager Budget STAT Care 04/07/24 16:08 Active EKG-ER Only STAT Care 04/07/24 16:07 Active IV Insertion STAT Care 04/07/24 16:07 Active Pulse Oximetry (ED) STAT Care 04/07/24 16:07 Active CHEST WITH CONTRAST [CT] Stat Exams 04/07/24 15:56 Taken VENOUS UNILAT/LIMITED EXTREMIT [US] Stat Exams 04/07/24 16:10 Completed CBC W DIFF Stat Lab 04/07/24 16:00 Completed CMP Stat Lab 04/07/24 16:00 Completed MAGNESIUM Stat Lab 04/07/24 16:00 Completed TROPONIN Q4H Lab 04/07/24 16:00 Completed TROPONIN Q4H Lab 04/07/24 20:15 Ordered TROPONIN Q4H Lab 04/08/24 00:15 Ordered Medication Summary Discontinued Medications Generic Name Dose Route Start Last Admin Trade Name Agustínq PRN Reason Stop Dose Admin Ketorolac Tromethamine 30 mg 04/07/24 19:24 04/07/24 19:45 Ketorolac Tromethamine 30 Mg/Ml Inj IM 04/07/24 19:25 Not Given STAT ONE Ketorolac Tromethamine Confirm 04/07/24 19:43 Ketorolac Tromethamine 30 Mg/Ml Inj Administered 04/07/24 19:44 Dose 30 mg .ROUTE .STK-MED ONE Lab/Rad Data: Laboratory Result Diagrams 04/07/24 16:00 04/07/24 16:00 Laboratory Results 06/18/24 06/18/24 06/18/24 Range/Units 16:00 16:00 16:00 WBC 10.4 H (3.98-10.04) x10^3/uL RBC 4.29 (3.93-5.22) x10^6/uL Hgb 13.4 (11.2-15.7) g/dL Hct 39.2 (34.1-44.9) % MCV 91.4 (79.4-94.8) fL MCH 31.2 (25.6-32.2) pg MCHC 34.2 (32.2-35.5) g/dL RDW 14.4 (11.7-14.4) % Plt Count 359 (182-369) x10^3/uL MPV 8.7 L (9.4-12.3) fL Gran % 61.5 (34.0-71.1) % Immature Gran % (Auto) 0.5 H (0.001-0.429) % Nucleat RBC Rel Count 0.0 (0.00-0.2) % Eos # (Auto) 0.08 (0.04-0.36) x10^3/uL Immature Gran # (Auto) 0.05 H (0.001-0.031) x10^3u/L Absolute Lymphs (auto) 3.13 (1.18-3.74) x10^3/uL Absolute Monos (auto) 0.69 (0.24-0.86) x10^3/uL Absolute Nucleated RBC 0.00 (0.00-0.012) x10^3u/L Lymphocytes % 30.2 (19.3-51.7) % Monocytes % 6.6 (4.7-12.5) % Eosinophils % 0.8 (0.7-5.8) % Basophils % 0.4 (0.1-1.2) % Absolute Granulocytes 6.39 H (1.56-6.13) x10^3/uL Basophils # 0.04 (0.01-0.08) x10^3/uL Sodium 136 (135-145) mmol/L Potassium 3.5 (3.5-5.1) mmol/L Chloride 103 (98-107) mmol/L Carbon Dioxide 28 (22-30) mmol/L Anion Gap 8.6 (5-15) MEQ/L BUN 8 (7-17) mg/dL Creatinine 0.67 (0.52-1.04) mg/dL Estimated GFR 105.1 ML/MIN Glucose 99 (74-106) mg/dL Calcium 9.3 (8.4-10.2) mg/dL Magnesium 1.7 (1.6-2.3) mg/dL Total Bilirubin 0.50 (0.2-1.3) mg/dL AST 25 (14-36) U/L ALT 15 (0-35) U/L Alkaline Phosphatase 76 (38-126) U/L Troponin I < 0.012 (0.000-0.033) ng/mL Serum Total Protein 6.6 (6.3-8.2) g/dL Albumin 3.8 (3.5-5.0) g/dL - Progress Progress: improved Progress Note: 53-year-old female presents to our ED for evaluation of pain to her right groin. Patient states that she is concerned regarding blood clot. Patient diagnosed with a blood clot currently on Eliquis. Patient also complains of some shortness of breath. Patient declined pain medication due to her multiple medical allergies. CTA chest negative for PE. Ultrasound right lower extremity negative for DVT. Patient reassessed. She is resting comfortably. No active pain. Patient does have some discomfort upon weightbearing. Patient ambulated in our ED. She was not limping. Patient ambulated with her cane. Gait was steady. Patient requesting discharge. She does not want further workup or pain medication. Vital stable. Complexity problem addressed is moderate acute complicated. No critical care time. Complex of data reviewed and analyzed is moderate. Test ordered test reviewed results analyzed and correlated clinically with history physical exam. Risk of complication and or risk of morbidity/mortality patient management is low. Vital stable. Time spent to discharge patient approximately 20 minutes. Plan of care established for shared decision making. No social determinants of health present impede follow-up. Portions of this note were created with voice recognition technology. There may be grammatical, spelling, punctuation or sound alike errors 04/07/24 19:49 Counseled pt/family regarding: lab results, diagnosis - Departure Departure Disposition: Home Clinical Impression: Right groin pain, Fatty liver, Stable emphysema Condition: Stable Critical Care Time: No Referrals: BENITO DAS [Primary Care Provider] - Follow up/PCP as directed Additional Instructions: Discharge/Care Plan EDWARD MARTINEZ was seen on 04/07/24 in the Emergency Room. The patient was counseled regarding Diagnosis,Lab results, Imaging studies, need for follow up and when to return to the Emergency Room. Prescriptions given: Discharge Note I have spoken with the patient and/or caregivers. I have explained the patient's condition, diagnosis and treatment plan based on the information available to me at this time. I have answered the patient's and/or caregiver's questions and addressed any concerns. The patient and/or caregivers have as good understanding of the patient's diagnosis, condition and treatment plan as can be expected at this point. The vital signs have been stable. The patient's condition is stable and appropriate for discharge from the emergency department. The patient will pursue further outpatient evaluation with the primary care physician or other designated or consulting physician as outlined in the discharge instructions. The patient and/or caregivers are agreeable to this plan of care and follow-up instructions have been explained in detail. The patient and/or caregivers have received these instruction. The patient/and or caregivers are aware that any significant change in condition or worsening of symptoms should prompt an immediate return to this or the closest emergency department or call 911.
[2024-04-07 16:14] LABS: Absolute Neutrophil Ct (ANC) 6.39 x10^3/uL (1.56-6.13); BASOPHIL % 0.4 % (0.1-1.2); Basophil (Absolute #) 0.04 x10^3/uL (0.01-0.08); Eosinophil % 0.8 % (0.7-5.8); Eosinophil (Absolute #) 0.08 x10^3/uL (0.04-0.36); Hematocrit 39.2 % (34.1-44.9); Hemoglobin 13.4 g/dL (11.2-15.7); IMMATURE GRAN # 0.05 x10^3u/L (0.001-0.031); IMMATURE GRAN % 0.5 % (0.001-0.429); Lymphocyte (Absolute #) 3.13 x10^3/uL (1.18-3.74); Lymphocytes % 30.2 % (19.3-51.7); Mean Cell Volume 91.4 fL (79.4-94.8); Mean Corpuscular Hemoglobin 31.2 pg (25.6-32.2); Mean Corpuscular Hgb Concent. 34.2 g/dL (32.2-35.5); Mean Platelet Volume 8.7 fL (9.4-12.3); Monocyte (Absolute #) 0.69 x10^3/uL (0.24-0.86); Monocytes % 6.6 % (4.7-12.5); Neutrophil % 61.5 % (34.0-71.1); Platelet Count 359 x10^3/uL (182-369); Red Blood Count 4.29 x10^6/uL (3.93-5.22); Red Cell Distribution Width 14.4 % (11.7-14.4); White Blood Count 10.4 x10^3/uL (3.98-10.04)
[2024-04-07 16:30] LABS: ALBUMIN 3.8 g/dL (3.5-5.0); ANION GAP 8.6 MEQ/L (5-15); BILIRUBIN,TOTAL 0.5 mg/dL (0.2-1.3); Calcium 9.3 mg/dL (8.4-10.2); Creatinine 1 0.67 mg/dL (0.52-1.04); EST GLOMERULAR FILTRATION RATE 105.1 ML/MIN; MAGNESIUM 1.7 mg/dL (1.6-2.3); Potassium 3.5 mmol/L (3.5-5.1); Total Protein 6.6 g/dL (6.3-8.2)
--- NOTE | 2024-04-07 16:50 | XRAY ---
Indication: Pain. History of DVT. Current blood thinner therapy. Two-dimensional sonogram and color Doppler imaging major venous vessels right leg performed. Comparison: None No thrombus seen in the examined deep venous vessels right leg including greater saphenous vein. Veins demonstrate normal compressibility. Venous waveforms are normal with and without augmentation. Impression: Right leg negative for DVT.
[2024-04-07] MEDS ORDERED: TORAdol 30 mg Injection ONE (19:43)
[2024-04-07] MEDS: TORAdol 30 mg Injection IM ONE (19:45)
[2024-04-07 20:04] VITALS: BP 133/82; PULSE 82; RESP 16; O2SAT 97
--- NOTE | 2024-04-08 08:47 | XRAY ---
Indication: Short of breath. Multiple contiguous axial images obtained through the chest using 80 cc Isovue 370 contrast and PE protocol. Comparison: CT chest without contrast March 18, 2022. Good opacification of the pulmonary arteries including lobar and segmental branches. Mild respiration artifact limits evaluation for pulmonary embolus in both mid to lower lungs. No pulmonary embolus. Heart not enlarged. Aorta is normal in course and caliber. No pathologic mediastinal/hilar lymphadenopathy. Lungs again demonstrates moderate diffuse pulmonary emphysema with biapical subpleural cystic changes. Minimal dependent atelectasis. No suspicious pulmonary mass/nodule, infiltrate, or effusion. Bony thorax intact again with mild degenerative changes throughout the spine. Limited upper abdomen demonstrates fatty liver and cholecystectomy clips. Impression: 1. Pulmonary embolus evaluation limited due to respiration artifact. No obvious pulmonary embolus. 2. Chronic findings including pulmonary emphysema with biapical subpleural cystic changes, degenerative spondylosis, and fatty liver.
== END 2024-04-07 20:11 | disposition home or self-care (01) ==
LOC: ED 15:43
DX: R10.31 Right lower quadrant pain (principal); K76.0 Fatty (change of) liver, not elsewhere classified; J43.9 Emphysema, unspecified; M79.604 Pain in right leg; R06.02 Shortness of breath; R07.9 Chest pain, unspecified; Z79.899 Other long term (current) drug therapy; Z72.0 Tobacco use
CPT/HCPCS: 36000; 36415; 71260; 80053; 83735; 84484; 85025; 93005; 93041; 93971; 94760; 99284; J1885